=== PATIENT | female | born 1990 | race Caucasian/White ===

== ENCOUNTER → 2016-04-25 | Outpatient (CLI) | payer MEDICAID, OTHER ==
[~2016-04-25] MED LIST: CEPH-507 PO
--- OUTSIDE RECORDS SUMMARY | 2016-04-25 13:25 | XMS REPORT | Continuity of Care Document ---
Author Author [facility] Organization [facility] Address Unknown Phone Unavailable Care Team Providers Care Administrative Office Manager Name Role Phone NO, LOCAL PHYSICIAN PCP Unavailable Insurance Providers Payer Name Policy Number Subscriber Name Relationship Unknown [place] 19 Self / Same As Patient Advance Directives Directive Response Recorded Date/Time Advance Directives No 08/24/15 10:51pm Resuscitation Status Full Code 08/24/15 10:51pm Chief Complaint and Reason for Visit Chief Complaint -Female Reason for Visit Urinary tract infection Vaginal discharge Cervicitis Problems Active Problems Medical Problem Onset Date Status Cervicitis Unknown Acute Urinary tract infection Unknown Acute Vaginal discharge Unknown Acute Medications Current Home Medications Medication Dose Units Route Directions Days/Qty Instructions Start Date Cephalexin 500 Mg 500 Mg Oral Four Times Daily 28 08/25/15 Social History Social History Problem Response Recorded Date/Time Alcohol Use Denies Use 08/24/2015 10:51pm Recreational Drug Use No 08/24/2015 10:51pm Recent Foreign Travel No 08/24/2015 10:51pm Recent Infectious Disease Exposure No 08/24/2015 10:51pm Hospitalization with Isolation Denies 08/24/2015 10:51pm Smoking Status Unknown if Ever Smoked 08/24/2015 10:51pm Query Response Start Date Stop Date Smoking Status Unknown if Ever Smoked Hospital Discharge Instructions No hospital discharge instructions. Plan of Care Discharge Date 08/25/15 12:28am Disposition 01 HOME, SELF-CARE Condition at Discharge Improved Instructions/Education Provided Cervicitis (ED) Urinary Tract Infection in Women (ED) Prescriptions See Medication Section Referrals NO,LOCAL PHYSICIAN - Primary Care Physician Additional Instructions/Education Drink plenty of clear liquids. Complete the entire course of your antibiotics as prescribed. 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 Nothing vaginally including intercourse or tampons until cleared by your doctor. Return to emergency room if symptoms worsen. All discharge instructions reviewed with patient and/or family. Voiced understanding. Functional Status No functional status results. Allergies, Adverse Reactions, Alerts Allergen Type Severity Reaction Status Last Updated Codeine Allergy Unknown Active 08/24/15 hydrocodone ([id number]) Allergy Unknown Active 08/24/15 Tramadol Allergy Unknown Active 08/24/15 Immunizations No immunization records. Vital Signs Acute Vital Signs Vital Response Date/Time Temperature (Fahrenheit) 98.8 degrees F (97.6 - 99.5) 08/25/2015 12:26am Temperature (Calculated Celsius) 37.98685 degrees C (36.4 - 37.5) 08/25/2015 12:26am Pulse Rate (adult) 56 bpm (60 - 90) 08/25/2015 12:26am Respiratory Rate 18 bpm (12 - 24) 08/25/2015 12:26am O2 Sat by Pulse Oximetry 97 % (88 - 100) 08/25/2015 12:26am Blood Pressure 112/67 mm Hg 08/25/2015 12:26am Blood Pressure Mean 97 mm Hg 08/24/2015 10:51pm Pain Numeric Pain Scale 0-No Pain 08/25/2015 12:26am Height (Feet) 5 feet 08/24/2015 10:51pm Height (Inches) 5 inches 08/24/2015 10:51pm Height (Calculated Centimeters) 165.975896 cm 08/24/2015 10:51pm Weight (Pounds) 171 pounds 08/24/2015 10:51pm Weight (Calculated Kilograms) 77.520267 kilograms 08/24/2015 10:51pm Height 5 ft 5 in Weight 171 lb Body Mass Index 28.5 kg/m^2 Results Laboratory Results Test Name Result Units Flags Reference Collection Date/Time Result Date/ Time Comments Urine Color YELLOW 08/24/2015 11:12pm 08/24/2015 11:30pm Urine Clarity CLEAR 08/24/2015 11:12pm 08/24/2015 11:30pm Urine pH 6 5-9 08/24/2015 11:12pm 08/24/2015 11:30pm Urine Specific [place] 1.025 * 1.016-1.022 08/24/2015 11:12pm 2015 11:30pm Urine Protein 1+ * NEGATIVE 08/24/2015 11:12pm 08/24/2015 11:30pm Urine Glucose (UA) NEGATIVE NEGATIVE 08/24/2015 11:12p08/24/2015 11 :30pm Urine RBC (Auto) NEGATIVE NEGATIVE 08/24/2015 11:12pm 08/24/2015 11: 30pm Urine Ketones NEGATIVE NEGATIVE 08/24/2015 11:12pm 08/24/2015 11: 30pm Urine Nitrite NEGATIVE NEGATIVE 08/24/2015 11:12p08/24/2015 11: 30pm Urine Bilirubin NEGATIVE NEGATIVE 08/24/2015 11:12pm 08/24/2015 11: 30pm Urine Urobilinogen 1 MG/DL NORMAL 08/24/2015 11:12pm 08/24/2015 11: 30pm Urine Leukocyte Esterase 3+ * NEGATIVE 08/24/2015 11:12pm 08/24/2015 11 :30pm Urine RBC NONE /HPF 08/24/2015 11:12pm 08/24/2015 11:30pm Urine WBC 10-25 /HPF * 08/24/2015 11:12pm 08/24/2015 11:30pm Urine Bacteria MODERATE /HPF * 08/24/2015 11:12pm 08/24/2015 11:30pm Urine Squamous Epithelial Cells 10-25 /HPF * 08/24/2015 11:12pm 2015 11:30pm Urine Crystals NONE /LPF 08/24/2015 11:12pm 08/24/2015 11:30pm Urine Casts NONE /LPF 08/24/2015 11:12pm 08/24/2015 11:30pm Urine Mucus MODERATE /LPF * 08/24/2015 11:12pm 08/24/2015 11:30pm Urine Culture Indicated YES 08/24/2015 11:12pm 08/24/2015 11:30pm Procedures No known history of procedures. Encounters Encounter Location Arrival/Admit Date Discharge/Depart Date Attending Provider Departed Emergency Room [facility] 08/24/15 10:46pm 08/04 12:28am CAMMIE WALLACE MD Recent Diagnosis
--- NOTE | 2016-04-25 15:44 | Diagnostic Imaging Report ---
EXAMINATION: OB ultrasound. INDICATION: Positive test. COMPARISON: There are no prior studies available for comparison. FINDINGS: There is a single live fetus in transverse presentation. heart motion was noted, and a rate of 142 BPM was recorded. There were no obvious abnormalities identified. However, if a more sensitive evaluation of the anatomy is desired, then a short-term (2-4 week) followup ultrasound exam should be obtained. The growth parameters are fairly uniform. The growth parameters are as follows: BPD: 3.78, 17 Weeks 4 days. Head circumference: 14.16, 17 Weeks 4 days. Abdominal circumference: 11.88, 17 weeks 5 days. Femur length: 2.49, 17 weeks 4 days. The estimated weight is 200 g, +/-29 g. The AUA percentile is 35%. The placenta is anterior and low lying. There is no previa identified. The amniotic fluid volume is within normal limits. The cervix was visualized and measures 3.6 cm in length. IMPRESSION: 1. There is a single live fetus of approximately 17 weeks 5 days gestation, +/-1 week. The EDC is September 28, 2016. 2. There were no obvious abnormalities identified. Recommendations as above. 3. The growth parameters are fairly uniform. 4. The placenta is anterior and low lying, but there is no previa. Dictated by: Dictated on workstation # [id number]
== END ==
LOC: RAD 13:22
PROVIDERS: ATTEND Nurse Practitioner Family
DX: Z36 Encounter for antenatal screening of mother (principal); Z3A.17 17 weeks gestation of pregnancy
CPT/HCPCS: 76805

== ENCOUNTER 2016-09-15 12:02 | Outpatient (CLI) | payer MEDICAID ==
[~2016-09-15] VITALS: Ht 167.6 cm; Wt 71.2 kg
[2016-09-15 12:20] VITALS: BP 125/79
[2016-09-15 12:50] LABS: BILIRUBIN,URINE NEGATIVE (NEGATIVE); KETONES,URINE NEGATIVE (NEGATIVE); LEUKOCYTE ESTERASE ,URINE 3+ (NEGATIVE); NITRITE,URINE NEGATIVE (NEGATIVE); PH,URINE 8 (5-9); PROTEIN,URINE 1+ (NEGATIVE); UROBILINOGEN,URINE NORMAL (NORMAL)
[2016-09-15 13:05] LABS: SQUAMOUS EPITHELIAL CELL,UR RARE /HPF
[2016-09-15] MEDS ORDERED: AMOX500C2 PO (13:16)
[2016-09-15] MEDS ORDERED: PREN-37 PO (13:16)
[2016-09-15 13:21] VITALS: BP 125/79
--- NOTE | 2016-09-15 14:02 | Diagnostic Imaging Report ---
INDICATION: Decreased movement. FINDINGS: The placenta is anterior with no evidence of abruption or previa. Placenta is estimated grade 2. There are noted multiple venous lakes. heartbeat of 140 beats per minute. The amniotic fluid index is 7 cm. Fetus is currently vertex. There is noted good breathing and movement. IMPRESSION: Normal biophysical profile scoring 8 out of potential 8 points. Dictated by: Dictated on workstation # [id number]
--- NOTE | 2016-09-18 11:48 | Physician Query-Final Dx ---
ROGER MORENO 09/18/16 1148: Clinic Account Progress/Dx Physician Query: Please give diagnosis Date of Service Sep 15, 2016 at 12:02 TORITO MUÑOZ MD 09/20/16 1027: Clinic Account Progress/Dx DIAGNOSIS: Diagnosis 38 weeks gestation TIUP Decreased movement with normal BPP ROGER MORENO Sep 18, 2016 11:48 TORITO MUÑOZ MD Sep 20, 2016 10:27
== END 2016-09-15 13:30 | disposition home or self-care (01) ==
LOC: WSo 12:02 → LDRP 12:03 → WSo 13:30
PROVIDERS: ATTEND Family Medicine
DX: O36.8130 Decreased fetal movements, third trimester, not applicable or unspecified (principal); Z3A.38 38 weeks gestation of pregnancy
CPT/HCPCS: 76819; 81000; 87088; 99213

== ENCOUNTER 2016-10-10 19:18 | Emergency (ER) | payer MEDICAID ==
[~2016-10-10] VITALS: Ht 162.6 cm; Wt 68.0 kg
[~2016-10-10 19:18] MED LIST changes: +AMOX500C2 PO; +PREN-37 PO
--- OUTSIDE RECORDS SUMMARY | 2016-10-10 19:24 | XMS REPORT | Continuity of Care Document ---
Author Author [facility] Address Unknown Phone Unavailable Allergies Medications Problems Date Dx Coded Attending Type Code Diagnosis Diagnosed By 04/14/2010 V72.31 LOOP SEWER EXAM, ROUTINE 04/14/2010 NIKKI HART APRN V72.31 LOOP SEWER EXAM, ROUTINE 04/14/2010 MARK CALLE DO V72.31 LOOP SEWER EXAM, ROUTINE 10/12/2010 V25.09 CONTRACEPTIVE COUNSELING 10/12/2010 V25.40 CONTRACEPTIVE SURVEILLANCE UNSPECIFIED 10/12/2010 V65.45 STD COUNSELING 10/12/2010 V74.5 STD SCREEN 10/12/2010 NIKKI HART APRN V25.09 CONTRACEPTIVE COUNSELING 10/12/2010 NIKKI HART APRN V25.40 CONTRACEPTIVE SURVEILLANCE UNSPECIFIED 10/12/2010 NIKKI HART APRN V65.45 STD COUNSELING 10/12/2010 NIKKI HART APRN V74.5 STD SCREEN 10/12/2010 MARK CALLE DO K V25.09 CONTRACEPTIVE COUNSELING 10/12/2010 VANESSA CALLE DOA K V25.40 CONTRACEPTIVE SURVEILLANCE UNSPECIFIED 10/12/2010 VANESSA CALLE DOA K V65.45 STD COUNSELING 10/12/2010 VANESSA CALLE DOA K V74.5 STD SCREEN 11/13/2013 NIKKI HART APRN V73.81 HPV SCREENING 11/13/2013 NIKKI HART APRN V73.98 SCREENING EXAMINATION FOR UNSPECIFIED CHLAMYDIAL DISEASE 11/13/2013 NIKKI HART APRN V76.2 CERVICAL CANCER SCREENING (PAP SMEAR) 11/13/2013 CALLE VANESSA CARTERA K V73.81 HPV SCREENING 11/13/2013 VANESSA CALLE DOA K V73.98 SCREENING EXAMINATION FOR UNSPECIFIED CHLAMYDIAL DISEASE 11/13/2013 VANESSA CALLE DOA K V76.2 CERVICAL CANCER SCREENING (PAP SMEAR) 12/02/2013 MARK CALLE DO V25.9 CONTRACEPTION MANAGEMENT Procedures Code Description [place] [address] TEST, URINE (IN-HOUSE) 11/13/2013 43028 GC/CHLAM PROBE (STATE) 11/13/2013 01067 PAP SMEAR 2013 Q0091 PAP SMEAR OBTAIN SMEAR 11/13/2013 61073 THERAPUTIC INJ SQ/IM 12/02/2013 J1050 DEPO PROVERA 46102 TEST, URINE (IN-HOUSE) 12/02/2013 Results Encounters ACCT No. Visit Date/Time Discharge Status Pt. Type Provider Facility Loc./Unit Complaint [id number] 12/02/2013 12:27:00 12/02/2013 23: 59:59 CLS Outpatient MARK CALLE DO [id number] 11/13/2013 08:22:00 11/13/2013 23: 59:59 CLS Outpatient NIKKI HART APRN [id number] 10/12/2010 10:32:00 Document Registration
--- NOTE | 2016-10-10 20:23 | ED Integumentary General ---
General Chief Complaint: Skin/Wound Problems Stated Complaint: POSS SPIDER BITE ON RT ARM Nursing Triage Note: Pt amb to ED 10 reporting a presumed spider bite at 0930 this a.m. Reports area on lower lateral FA is burning with a small area of swelling/redness reported as "hot". Source: patient Exam Limitations: no limitations History of Present Illness Time seen by provider: 20:22 Initial Comments 26-year-old female patient presents to the emergency department with complaints of an insect bite to the right forearm beginning at 0930 today. Patient states she was outside last night and there were "a lot of mosquitoes." Patient reports swelling, redness, itching, and the area "feeling hot." Denies fever or drainage. Timing/Duration: this morning, getting worse Location: extremities (rt forearm) Possible Cause: insect bite ((possible spider bite or insect bite)) Modifying Factors: worse with scratching Allergies and Home Medications Allergies Coded Allergies: codeine (Unverified Allergy, Unknown, 08/24/15) tramadol (Unverified Allergy, Unknown, 08/24/15) sulfamethoxazole (Verified Adverse Reaction, Unknown, 10/10/16) trimethoprim (Verified Adverse Reaction, Unknown, 10/10/16) Home Medications Amoxicillin 500 Mg Capsule, 500 MG PO BID for 7 Days Prescribed by: ASHELY COATS on 09/15/16 1316 Vit/Iron Fumarate/FA 1 Each Tablet, 1 EACH PO DAILY, (Reported) Constitutional: No chills, No fever, No malaise EENTM: no symptoms reported Respiratory: no symptoms reported Cardiovascular: no symptoms reported Gastrointestinal: no symptoms reported Musculoskeletal: see HPI Skin: see HPI Psychiatric/Neurological: No Symptoms Reported All Other Systems Reviewed Negative Unless Noted: Yes (Negative excepted noted.) Past Amvkgwy-Etfkto-Masaox Hx Patient Social History Alcohol Use: Occasionally Uses Recreational Drug Use: No Smoking Status: Current Everyday Smoker Type Used: Cigarettes Recent Foreign Travel: No Contact w/Someone Who Travel: No Recent Infectious Disease Expo: No Recent Hopitalizations: No Seasonal Allergies Seasonal Allergies: No Surgeries History of Surgeries: No Respiratory History of Respiratory Disorde: No Cardiovascular History of Cardiac Disorders: No Neurological History of Neurological Disord: No Reproductive System : No (had baby 09/28/16) Hx : 2 Hx Para: 1 Hx Total # of Abortions (Spona: 1 Hx Reproductive Disorders: No Genitourinary History of Genitourinary Disor: No Gastrointestinal History of Gastrointestinal Di: No Musculoskeletal History of Musculoskeletal Dis: No Endocrine History of Endocrine Disorders: No HEENT History of HEENT Disorders: No Cancer History of Cancer: No Psychosocial History of Psychiatric Problem: No Integumentary History of Skin or Integumenta: No Blood Transfusions History of Blood Disorders: No Reviewed Nursing Assessment Reviewed/Agree w Nursing PMH: Yes Family Medical History Significant Family History: Cancer, Diabetes, Hypertension Physical Exam Vital Signs Vital Sign - Last 12Hours 10/10/16 19:24 Temp 98.1 Pulse 90 Resp 16 B/P (MAP) 112/83 Pulse Ox 97 O2 Delivery Room Air Capillary Refill : Less Than 3 Seconds General Appearance: WD/WN, no apparent distress Cardiovascular: normal peripheral pulses, regular rate, rhythm, no edema, no murmur Respiratory: lungs clear, normal breath sounds, no respiratory distress Extremities: normal capillary refill, other (3x4 cm area of ligh pink blush with a central puncture site noted on the posterior rt forearm. mild warmth noted. no drainage. nontender at the time of exam) Neurologic/Psychiatric: alert, normal mood/affect, oriented x 3 Skin: normal color, warm/dry, other (3x4 cm area of ligh pink blush with a central puncture site noted on the posterior rt forearm. mild warmth noted. no drainage. nontender at the time of exam) Skin Problem Location: upper extremities (rt forearm) Skin Problem Character: other (3x4 cm area of ligh pink blush with a central puncture site noted on the posterior rt forearm. mild warmth noted. no drainage. nontender at the time of exam) Progress/Results/Core Measures Results/Orders My Orders Orders - CATIA ESTEVEZ Dexamethasone Pf Injection (Decadron Pf (10/10/16 20:31) Diphenhydramine Tablet (Benadryl Tablet) (10/10/16 20:45) Famotidine Tablet (Pepcid Tablet) (10/10/16 20:45) Vital Signs/I&O Vital Sign - Last 12Hours 10/10/16 19:24 Temp 98.1 Pulse 90 Resp 16 B/P (MAP) 112/83 Pulse Ox 97 O2 Delivery Room Air Blood Pressure Mean: 93 Departure Impression Impression: Primary Impression: Urticaria Additional Impression: Insect bite Qualified Codes: W57.XXXA - Bitten or stung by nonvenomous insect and other nonvenomous arthropods, initial encounter Disposition: 01 HOME, SELF-CARE Condition: Improved Departure-Patient Inst. Decision time for Depature: 20:47 Referrals: NO,LOCAL PHYSICIAN (PCP/Family) Primary Care Physician Patient Instructions: Insect Bites and Stings (DC) Add. Discharge Instructions: All discharge instructions reviewed with patient and/or family. Voiced understanding. Medications as instructed. Tylenol extra strength [id number] as directed for pain. Ibuprofen 800 mg by mouth every 8 hours as needed for pain. Benadryl [id number] 25-50 mg by mouth every 4-6 hours as needed for itching and rash. Pepcid [id number]-[id number] 20 mg one by mouth twice daily as needed for allergic reactions. Shower with antibacterial soap. Ice packs or heating pads as needed for pain and swelling. Follow-up with your family practitioner for recheck if needed. Return to the emergency department for worsened symptoms or any other concerns. 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
[2016-10-10] MEDS ORDERED: DEXAMETHASONE PF 10 MG/ML (DECADRON) VIAL IM STA (20:31)
[2016-10-10] MEDS ORDERED: diphenhydrAMINE 25 MG TAB (BENADRYL) PO ONE (20:45)
[2016-10-10] MEDS ORDERED: FAMOTIDINE 20 MG (PEPCID) TABLET PO ONE (20:45)
[2016-10-10] MEDS ORDERED: PRD20T PO (20:47)
[2016-10-10] MEDS ORDERED: DEXAMETHASONE 10 MG/ML (DECADRON) 1 ML VIAL ONE (20:58)
[2016-10-10 21:40] VITALS: BP 107/72
== END 2016-10-10 21:40 | disposition home or self-care (01) ==
LOC: EDUNIT# 19:18 → ER 19:20
DX: S50.861A Insect bite (nonvenomous) of right forearm, initial encounter (principal); L50.9 Urticaria, unspecified; F17.210 Nicotine dependence, cigarettes, uncomplicated; Z80.9 Family history of malignant neoplasm, unspecified; W57.XXXA Bitten or stung by nonvenomous insect and other nonvenomous arthropods, initial encounter
CPT/HCPCS: 96372; 99284

== ENCOUNTER 2017-02-22 17:41 | Emergency (ER) | payer MEDICAID ==
[~2017-02-22] VITALS: Ht 165.1 cm; Wt 62.6 kg
[~2017-02-22 17:41] MED LIST changes: +PRD20T PO
--- NOTE | 2017-02-22 17:51 | ED GI ---
General Chief Complaint: Abdominal/GI Problems Stated Complaint: PASSED OUT AT WORK Source of Information: Patient, EMS Exam Limitations: No Limitations History of Present Illness Time Seen By Provider: 17:50 Initial Comments To ER per EMS from work at [employer] in [facility] with reports of nausea vomiting and syncope. Patient had been feeling ill today and vomited twice at home. She then went into work and asked someone to cover for her when she went to the bathroom. She went to the bathroom again because she was feeling very nauseous. She states "I blacked out". She denies hitting her head but she does report some dizziness. Denies chest pain or palpitations. She has had some suprapubic and low back pain for the past few days. No dysuria. Timing/Duration: 4-6 Hours Severity/Quality: Moderate Radiation: Back Activities at Onset: None Allergies and Home Medications Allergies Coded Allergies: codeine (Unverified Allergy, Unknown, 08/24/15) tramadol (Unverified Allergy, Unknown, 08/24/15) sulfamethoxazole (Verified Adverse Reaction, Unknown, 10/10/16) trimethoprim (Verified Adverse Reaction, Unknown, 10/10/16) Home Medications Amoxicillin 500 Mg Capsule, 500 MG PO BID for 7 Days Prescribed by: ASHELY COATS on 09/15/16 1316 Medroxyprogesterone Acetate 150 Mg/1 Ml Syringe, 150 MG IM, (Reported) Prednisone 20 Mg Tab, 40 MG PO DAILY, #10 Ref 0 Prescribed by: CATIA ESTEVEZ on 10/10/16 2047 Vit/Iron Fumarate/FA 1 Each Tablet, 1 EACH PO DAILY, (Reported) Review of Systems Constitutional: see HPI EENTM: No Symptoms Reported Respiratory: No Symptoms Reported Cardiovascular: See HPI, Denies Chest Pain, Denies Edema, Denies Irregular Heart Rate, Denies Lightheadedness, Denies Palpitations, Syncope Gastrointestinal: See HPI, Abdominal Pain, Nausea, Vomiting Genitourinary: No Symptoms Reported Musculoskeletal: no symptoms reported Skin: no symptoms reported Psychiatric/Neurological: No Symptoms Reported Endocrine: No Symptoms Reported Hematologic/Lymphatic: No Symptoms Reported Past Kcgydou-Mwegoa-Cxeuyr Hx Patient Social History Type Used: Cigarettes Recent Foreign Travel: No Contact w/Someone Who Travel: No Recent Hopitalizations: No Seasonal Allergies Seasonal Allergies: No Surgeries History of Surgeries: No Respiratory History of Respiratory Disorde: No Cardiovascular History of Cardiac Disorders: No Neurological History of Neurological Disord: No Reproductive System Hx Reproductive Disorders: No Genitourinary History of Genitourinary Disor: No Gastrointestinal History of Gastrointestinal Di: No Musculoskeletal History of Musculoskeletal Dis: No Endocrine History of Endocrine Disorders: No HEENT History of HEENT Disorders: No Cancer History of Cancer: No Psychosocial History of Psychiatric Problem: No Integumentary History of Skin or Integumenta: No Blood Transfusions History of Blood Disorders: No Family Medical History Significant Family History: Cancer, Diabetes, Hypertension Physical Exam Vital Signs VS - Last 72 Hours, by Label 02/22/17 17:49 Temp 98.3 Pulse 92 Resp 20 B/P (MAP) 112/74 (87) Pulse Ox 97 O2 Delivery Room Air Capillary Refill : General Appearance: WD/WN, no apparent distress HEENT: PERRL/EOMI, normal ENT inspection Neck: non-tender, full range of motion Respiratory: normal breath sounds, no respiratory distress, no accessory muscle use Cardiovascular: regular rate, rhythm, no murmur Gastrointestinal: normal bowel sounds, non tender, soft Extremities: normal range of motion, non-tender Neurologic/Psychiatric: alert, normal mood/affect, oriented x 3 Skin: normal color, warm/dry Progress/Results/Core Measures Results/Orders Lab Results Laboratory Tests Test 02/22/17 18:04 Range/Units White Blood Count 11.5 H 4.3-11.0 10^3/uL Red Blood Count 4.58 4.35-5.85 10^6/uL Hemoglobin 13.6 11.5-16.0 G/DL Hematocrit 36 35-52 % Mean Corpuscular Volume 78 L 80-99 FL Mean Corpuscular Hemoglobin 30 25-34 PG Mean Corpuscular Hemoglobin Concent 38 H 32-36 G/DL Red Cell Distribution Width 13.5 10.0-14.5 % Platelet Count 244 130-400 10^3/uL Mean Platelet Volume 8.6 7.4-10.4 FL Neutrophils (%) (Auto) 91 H 42-75 % Lymphocytes (%) (Auto) 4 L 12-44 % Monocytes (%) (Auto) 4 0-12 % Eosinophils (%) (Auto) 1 0-10 % Basophils (%) (Auto) 0 0-10 % Neutrophils # (Auto) 10.5 H 1.8-7.8 X 10^3 Lymphocytes # (Auto) 0.5 L 1.0-4.0 X 10^3 Monocytes # (Auto) 0.5 0.0-1.0 X 10^3 Eosinophils # (Auto) 0.1 0.0-0.3 10^3/uL Basophils # (Auto) 0.0 0.0-0.1 10^3/uL Neutrophils % (Manual) 88 % Lymphocytes % (Manual) 5 % Monocytes % (Manual) 3 % Eosinophils % (Manual) 2 % Basophils % (Manual) 0 % Band Neutrophils 2 % Clumped Platelets OCCASIONAL Blood Morphology Comment NORMAL Urine Color ANN H Urine Clarity SLIGHTLY CLOUDY Urine pH 6 5-9 Urine Specific [place] 1.015 L 1.016-1.022 Urine Protein 2+ H NEGATIVE Urine Glucose (UA) NEGATIVE NEGATIVE Urine Ketones 4+ H NEGATIVE Urine Nitrite NEGATIVE NEGATIVE Urine Bilirubin 1+ H NEGATIVE Urine Urobilinogen 1 NORMAL MG/DL Urine Leukocyte Esterase 1+ H NEGATIVE Urine RBC (Auto) NEGATIVE NEGATIVE Urine RBC NONE /HPF Urine WBC 2-5 /HPF Urine Squamous Epithelial Cells 10-25 H /HPF Urine Crystals NONE /LPF Urine Bacteria MODERATE H /HPF Urine Casts NONE /LPF Urine Mucus LARGE H /LPF Urine Culture Indicated NO Sodium Level 140 135-145 MMOL/L Potassium Level 3.9 3.6-5.0 MMOL/L Chloride Level 107 98-107 MMOL/L Carbon Dioxide Level 22 21-32 MMOL/L Anion Gap 11 5-14 MMOL/L Blood Urea Nitrogen 18 7-18 MG/DL Creatinine 0.73 0.60-1.30 MG/DL Estimat Glomerular Filtration Rate > 60 BUN/Creatinine Ratio 25 Glucose Level 87 70-105 MG/DL Calcium Level 8.9 8.5-10.1 MG/DL Total Bilirubin 0.5 0.1-1.0 MG/DL Aspartate Amino Transf (AST/SGOT) 16 5-34 U/L Alanine Aminotransferase (ALT/SGPT) 10 0-55 U/L Alkaline Phosphatase 50 40-136 U/L Total Protein 7.6 6.4-8.2 GM/DL Albumin 4.2 3.2-4.5 GM/DL Urine Opiates Screen NEGATIVE NEGATIVE Urine Oxycodone Screen NEGATIVE NEGATIVE Urine Methadone Screen NEGATIVE NEGATIVE Urine Propoxyphene Screen NEGATIVE NEGATIVE Urine Barbiturates Screen NEGATIVE NEGATIVE Ur Tricyclic Antidepressants Screen NEGATIVE NEGATIVE Urine Phencyclidine Screen NEGATIVE NEGATIVE Urine Amphetamines Screen NEGATIVE NEGATIVE Urine Methamphetamines Screen POSITIVE H NEGATIVE Urine Benzodiazepines Screen NEGATIVE NEGATIVE Urine Cocaine Screen NEGATIVE NEGATIVE Urine Cannabinoids Screen NEGATIVE NEGATIVE My Orders Orders - DARWIN LARSON APRN Cbc With Automated Diff (02/22/17 17:48) Comprehensive Metabolic Panel (02/22/17 17:48) Ua Culture If Indicated (02/22/17 17:48) Urine Bedside (02/22/17 17:48) Drug Screen Stat (Urine) (02/22/17 17:48) Ekg Tracing (02/22/17 17:48) Saline Lock/Iv-Start (02/22/17 17:48) Ct Head Wo (02/22/17 17:48) Ondansetron Injection (Zofran Injectio (02/22/17 18:00) Manual Differential (02/22/17 18:04) Ct Abdomen/Pelvis W (02/22/17 18:55) Medications Given in ED Current Medications Medications Dose Ordered Sig/Chacorta Route Start Time Stop Time Status Last Admin Dose Admin Ondansetron HCl 8 mg ONCE ONCE IVP 02/22/17 18:00 02/22/17 18:01 DC 02/22/17 18:27 8 MG Vital Signs/I&O Vital Sign - Last 12Hours 02/22/17 17:49 Temp 98.3 Pulse 92 Resp 20 B/P (MAP) 112/74 (87) Pulse Ox 97 O2 Delivery Room Air Diagnostic Imaging Diagonstic Imaging: CT Comments NAME: MATILDA [facility]BY [facility] REC#: [id number] PT STATUS: REG ER : 1990 PHYSICIAN: DARWIN LARSON APRN ADMIT DATE: 02/22/17/ER Draft Date of Exam:02/22/17 CT HEAD WO PROCEDURE: CT head without contrast. TECHNIQUE: Multiple contiguous axial images were obtained through the brain without the use of intravenous contrast. INDICATION: Loss of consciousness. COMPARISON: None. FINDINGS: No intracranial hemorrhage. No Intracranial mass, mass effect, midline shift, herniation, hydrocephalus, or extra-axial fluid collection. No CT evidence of an acute ischemic infarction. The calvarium and extracalvarial soft tissues are unremarkable. The paranasal sinuses are clear. IMPRESSION: No acute intracranial abnormality. Dictated on workstation # [id number] Dict: 02/22/17 1829 Trans: 02/22/17 1835 [facility] [id number] Interpreted by: FRANCO ESPINOZA MD Electronically signed by: Departure Communication (Admissions) Progress Notes 183- Patient states that she has not used methamphetamines since August. 190-patient is feeling better at this time without nausea vomiting or abdominal pain. With that in mind I will cancel the abdominal CT. Impression Impression: Primary Impression: Syncopal episodes Additional Impression: Nausea & vomiting Disposition: HOME, SELF-CARE Condition: Stable Departure-Patient Inst. Decision time for Depature: 19:05 Referrals: NO,LOCAL PHYSICIAN (PCP/Family) Primary Care Physician Add. Discharge Instructions: clear liquids only for the next 12 hours return to ER for any worsening. All discharge instructions reviewed with patient and/or family. Voiced understanding. Scripts Ondansetron (Zofran Odt) 8 Mg Tab.rapdis 8 MG PO Q6H Y for NAUSEA/VOMITING-1ST LINE, #10 TAB Prov: DARWIN LARSON RIVETER 02/22/17 DARWIN LARSON RIVETER Feb 22, 2017 17:51
[2017-02-22] MEDS ORDERED: ONDANSETRON 4 MG/2 ML (SDV) Z0FRAN IVP ONE (18:00)
[2017-02-22 18:20] LABS: BASOPHILS % (AUTO) 0 % (0-10); EOSINOPHILS # (AUTO) 0.1 10^3/uL (0.0-0.3); EOSINOPHILS % (AUTO) 1 % (0-10); HEMATOCRIT 36 % (35-52); HEMOGLOBIN 13.6 G/DL (11.5-16.0); LYMPHOCYTES # (AUTO) 0.5 X 10^3 (1.0-4.0); LYMPHOCYTES % (AUTO) 4 % (12-44); MEAN CORPUSCULAR HEMOGLOBIN 30 PG (25-34); MEAN CORPUSCULAR HGB CONC 38 G/DL (32-36); MEAN CORPUSCULAR VOLUME 78 FL (80-99); MEAN PLATELET VOLUME 8.6 FL (7.4-10.4); MONOCYTES # (AUTO) 0.5 X 10^3 (0.0-1.0); MONOCYTES % (AUTO) 4 % (0-12); NEUTROPHILS # (AUTO) 10.5 X 10^3 (1.8-7.8); NEUTROPHILS % (AUTO) 91 % (42-75); PLATELET COUNT 244 10^3/uL (130-400); RED BLOOD COUNT 4.58 10^6/uL (4.35-5.85); RED CELL DISTRIBUTION WIDTH 13.5 % (10.0-14.5); WHITE BLOOD COUNT 11.5 10^3/uL (4.3-11.0)
[2017-02-22 18:28] LABS: AMPHETAMINE SCREEN, URINE NEGATIVE (NEGATIVE); BARBITURATE SCREEN URINE NEGATIVE (NEGATIVE); BENZODIAZEPINES SCREEN URINE NEGATIVE (NEGATIVE); CANNABINOID SCREEN, URINE NEGATIVE (NEGATIVE); COCAINE SCREEN URINE NEGATIVE (NEGATIVE); METHADONE STAT NEGATIVE (NEGATIVE); METHAMPHETAMINE SCREEN URINE S POSITIVE (NEGATIVE); OPIATE SCREEN URINE NEGATIVE (NEGATIVE); OXYCODONE STAT NEGATIVE (NEGATIVE); PROPOXYPHENE STAT NEGATIVE (NEGATIVE); TRICYCLIC ANTIDEPRESSANTS SCRE NEGATIVE (NEGATIVE)
--- NOTE | 2017-02-22 18:35 | Diagnostic Imaging Report ---
PROCEDURE: CT head without contrast. TECHNIQUE: Multiple contiguous axial images were obtained through the brain without the use of intravenous contrast. INDICATION: Loss of consciousness. COMPARISON: None. FINDINGS: No intracranial hemorrhage. No Intracranial mass, mass effect, midline shift, herniation, hydrocephalus, or extra-axial fluid collection. No CT evidence of an acute ischemic infarction. The calvarium and extracalvarial soft tissues are unremarkable. The paranasal sinuses are clear. IMPRESSION: No acute intracranial abnormality. Dictated by: Dictated on workstation # [id number]
[2017-02-22 18:37] LABS: ALANINE AMINOTRANSFERASE 10 U/L (0-55); ALBUMIN 4.2 GM/DL (3.2-4.5); ALKALINE PHOSPHATASE 50 U/L (40-136); BILIRUBIN,TOTAL 0.5 MG/DL (0.1-1.0); BUN/CREATININE RATIO 25; CALCIUM 8.9 MG/DL (8.5-10.1); CARBON DIOXIDE 22 MMOL/L (21-32); CHLORIDE 107 MMOL/L (98-107); CREATININE SERUM 0.73 MG/DL (0.60-1.30); GFR ESTIMATED > 60; GLUCOSE 87 MG/DL (70-105); POTASSIUM 3.9 MMOL/L (3.6-5.0); SODIUM 140 MMOL/L (135-145); TOTAL PROTEIN 7.6 GM/DL (6.4-8.2)
[2017-02-22 18:39] LABS: BAND NEUTROPHILS 2 %; BASOPHILS % (MANUAL) 0 %; EOSINOPHILS % (MANUAL) 2 %; LYMPHOCYTES % (MANUAL) 5 %; MONOCYTES % (MANUAL) 3 %; NEUTROPHILS % (MANUAL) 88 %; PLATELET CLUMPS OCCASIONAL; RBC MORPH NORMAL
[2017-02-22 18:42] LABS: CLARITY,URINE SLIGHTLY CLOUDY; COLOR,URINE AMBER; GLUCOSE, URINE (UA) NEGATIVE (NEGATIVE); KETONES,URINE 4+ (NEGATIVE); LEUKOCYTE ESTERASE ,URINE 1+ (NEGATIVE); NITRITE,URINE NEGATIVE (NEGATIVE); PH,URINE 6 (5-9); PROTEIN,URINE 2+ (NEGATIVE); UROBILINOGEN,URINE 1 MG/DL (NORMAL)
[2017-02-22] MEDS ORDERED: MEDR150D8 IM (18:56)
[2017-02-22 19:01] LABS: BILIRUBIN,URINE 1+ (NEGATIVE)
[2017-02-22 19:03] LABS: BACTERIA,URINE MODERATE /HPF
[2017-02-22] MEDS ORDERED: ONDA8TAB9 PO (19:06)
[2017-02-22 19:26] VITALS: BP 90/55
--- OUTSIDE RECORDS SUMMARY | 2017-02-23 23:28 | XMS REPORT ---
Author Author ORTIZ WILKERSON [facility] [place] Address [address] [place] [address] Care Team Providers Care Steel Loader Name Role Phone ORTIZ WILKERSON Unavailable PROBLEMS Type Condition ICD9-CM Code [id number] Code Onset Dates Condition Status SNOMED Code Problem Normal first confirmed, currently in second trimester Z34.02 Active [id number] ALLERGIES No Information SOCIAL HISTORY Never Assessed PLAN OF CARE VITAL SIGNS MEDICATIONS Unknown Medications RESULTS Name Result Date Reference Range THYROID ANALYZER 2016-04-11 TSH 0.769 0.450-4.500 PROCEDURES Procedure Date Ordered Result Body Site ROUTINE VENIPUNCTURE 2016-04-11 N/A ASSAY THYROID STIM HORMONE Apr 11, 2016 IMMUNIZATIONS No Known Immunizations MEDICAL (GENERAL) HISTORY Type Description Date Hospitalization History [facility] , 12 hour stay. 03/2011
--- OUTSIDE RECORDS SUMMARY | 2017-02-23 23:28 | XMS REPORT ---
Author ORTIZ Gomes [facility] Address [address] [place] [address] Care Team Providers Care Military Source Operations Officer Name Role Phone ORTIZ WILKERSON Unavailable PROBLEMS Type Condition ICD9-CM Code [id number] Code Onset Dates Condition Status SNOMED Code Problem Normal first confirmed, currently in second trimester Z34.02 Active [id number] ALLERGIES No Information SOCIAL HISTORY Never Assessed PLAN OF CARE VITAL SIGNS MEDICATIONS Unknown Medications RESULTS No Results PROCEDURES No Known procedures IMMUNIZATIONS No Known Immunizations MEDICAL (GENERAL) HISTORY Type Description Date Hospitalization History [facility] , 12 hour stay. 03/2011
--- OUTSIDE RECORDS SUMMARY | 2017-02-23 23:28 | XMS REPORT ---
Author ORTIZ Gomes [facility] Address [address] [place] [address] Care Team Providers Care Pond Worker Name Role Phone ORTIZ WILKERSON Unavailable PROBLEMS Type Condition ICD9-CM Code [id number] Code Onset Dates Condition Status SNOMED Code Problem Normal first confirmed, currently in second trimester Z34.02 Active [id number] ALLERGIES No Information SOCIAL HISTORY Never Assessed PLAN OF CARE VITAL SIGNS MEDICATIONS Unknown Medications RESULTS No Results PROCEDURES No Known procedures IMMUNIZATIONS No Known Immunizations MEDICAL (GENERAL) HISTORY Type Description Date Hospitalization History [facility] , 12 hour stay. 03/2011
--- OUTSIDE RECORDS SUMMARY | 2017-02-23 23:28 | XMS REPORT ---
Author Author ORTIZ WILKERSON [facility] Address [address] [place] [address] Care Team Providers Care Fence Erector Name Role Phone ORTIZ WILKERSON Unavailable PROBLEMS Type Condition ICD9-CM Code [id number] Code Onset Dates Condition Status SNOMED Code Problem Normal first confirmed, currently in second trimester Z34.02 Active [id number] ALLERGIES Unknown Allergies SOCIAL HISTORY No smoking Hx information available PLAN OF CARE VITAL SIGNS MEDICATIONS Unknown Medications RESULTS Name Result Date Reference Range TEST, URINE (IN HOUSE) RESULTS Positive Lot # [id number] Control + Exp date 05/2017 PROCEDURES Procedure Date Ordered Related Diagnosis Body Site URINE TEST Feb 25, 2016 IMMUNIZATIONS No Known Immunizations
--- OUTSIDE RECORDS SUMMARY | 2017-02-23 23:28 | XMS REPORT ---
Author ORTIZ Gomes [facility] Address [address] [place] [address] Care Team Providers Care Design Maker Name Role Phone ORTIZ WILKERSON Unavailable PROBLEMS Type Condition ICD9-CM Code PGL70-DY Code Onset Dates Condition Status SNOMED Code Problem Normal first confirmed, currently in second trimester Z34.02 Active [id number] ALLERGIES No Information SOCIAL HISTORY Never Assessed PLAN OF CARE VITAL SIGNS MEDICATIONS Unknown Medications RESULTS No Results PROCEDURES No Known procedures IMMUNIZATIONS No Known Immunizations MEDICAL (GENERAL) HISTORY Type Description Date Hospitalization History [facility] , 12 hour stay. 03/2011
--- OUTSIDE RECORDS SUMMARY | 2017-02-23 23:28 | XMS REPORT ---
Author MARK Briscoe [facility] Address [address] [place] [address] Care Team Providers Care Allied Health Instructor Name Role Phone MARK CALLE Unavailable PROBLEMS Type Condition ICD9-CM Code [id number] Code Onset Dates Condition Status SNOMED Code Problem Normal first confirmed, currently in second trimester Z34.02 Active [id number] ALLERGIES Substance Reaction Event Type Date Status Codeine Sulfate dizziness Drug Allergy Apr, Active SOCIAL HISTORY Never Assessed PLAN OF CARE Activity Details Follow Up 4 Weeks w/ Dr. Melgar Reason:ob VITAL SIGNS Height 65 in 2016-04-24 Weight 150.8 lbs 2016-04-24 Temperature 97.8 degrees Fahrenheit 2016-04-24 Heart Rate 63 bpm 2016-04-24 Respiratory Rate 16 2016-04-24 BMI 25.094 kg/m2 2016-04-24 Blood pressure systolic 96 mmHg 2016-04-24 Blood pressure diastolic 58 mmHg 2016-04-24 MEDICATIONS Unknown Medications RESULTS Name Result Date Reference Range TETRA SCREEN 2016-04-25 Results Report Test Results: *Screen Negative* Gest. Age on Collection Date 17.1 Gestat. Age Based On Ultrasound Maternal Age At PATRICE 25.2 Race Weight 150 Insulin Dep Diabetes No Multiple Gestation No AFP Value 47.8 AFP MoM 1.26 hCG Value hCG MoM 0.61 uE3 Value 1.38 uE3 MoM 1.27 ROOPA Value 169.97 ROOPA MoM 0.98 OSBR Risk 1 IN 5411 DSR (Second Trimester) 1 [place] [address] DSR (By Age) 1 IN 1022 T18 Risk Not increased T18 (By Age) 1:3981 Interpretation Comments: PDF . PDF Report 2016-04-25 PDF Report1 [facility] PROCEDURES Procedure Date Ordered Result Body Site ROUTINE VENIPUNCTURE 2016-04-24 N/A ALPHA-FETOPROTEIN, SERUM April 24, 2016 ASSAY OF ESTRIOL April 24, 2016 INHIBIN A April 24, 2016 CHORIONIC GONADOTROPIN TEST April 24, 2016 IMMUNIZATIONS No Known Immunizations MEDICAL (GENERAL) HISTORY Type Description Date Hospitalization History [facility] , 12 hour stay. 03/2011
--- OUTSIDE RECORDS SUMMARY | 2017-02-23 23:29 | XMS REPORT | Continuity of Care Document ---
Author Author [facility] Address Unknown Phone Unavailable Allergies There is no data. Medications There is no data. Problems Date Dx Coded Attending Type Code Diagnosis Diagnosed By 04/14/2010 V72.31 PIPE FITTER SOFT COPPER EXAM, ROUTINE 04/14/2010 NIKKI HART APRN V72.31 PIPE FITTER SOFT COPPER EXAM, ROUTINE 04/14/2010 MARK CALLE DO K V72.31 PIPE FITTER SOFT COPPER EXAM, ROUTINE 10/12/2010 V25.09 CONTRACEPTIVE COUNSELING 10/12/2010 V25.40 CONTRACEPTIVE SURVEILLANCE UNSPECIFIED 10/12/2010 V65.45 STD COUNSELING 10/12/2010 V74.5 STD SCREEN 10/12/2010 NIKKI HART APRN V25.09 CONTRACEPTIVE COUNSELING 10/12/2010 NIKKI HART APRN L V25.40 CONTRACEPTIVE SURVEILLANCE UNSPECIFIED 10/12/2010 NIKKI HART APRN L V65.45 STD COUNSELING 10/12/2010 NIKKI HART APRN L V74.5 STD SCREEN 10/12/2010 CALLE VANESSA CARTERA K V25.09 CONTRACEPTIVE COUNSELING 10/12/2010 LUC CARTER MARK K V25.40 CONTRACEPTIVE SURVEILLANCE UNSPECIFIED 10/12/2010 LUC CARTER MARK K V65.45 STD COUNSELING 10/12/2010 LUC CARTER MARK K V74.5 STD SCREEN 11/13/2013 NIKKI HART APRN V73.81 HPV SCREENING 11/13/2013 EATNIKKI BAUTISTA APRN L V73.98 SCREENING EXAMINATION FOR UNSPECIFIED CHLAMYDIAL DISEASE 11/13/2013 EATNIKKI BAUTISTA APRN V76.2 CERVICAL CANCER SCREENING (PAP SMEAR) 11/13/2013 CALLE DO MARK K V73.81 HPV SCREENING 11/13/2013 CALLE DO MARK K V73.98 SCREENING EXAMINATION FOR UNSPECIFIED CHLAMYDIAL DISEASE 11/13/2013 CALLE DO MARK K V76.2 CERVICAL CANCER SCREENING (PAP SMEAR) 12/02/2013 MARK CALLE DO V25.9 CONTRACEPTION MANAGEMENT Procedures Code Description [place] [address] TEST, URINE (IN- HOUSE) 11/13/2013 56769 GC/CHLAM PROBE (STATE) 11/13/2013 57777 PAP SMEAR 11/13/2013 Q0091 PAP SMEAR OBTAIN SMEAR 11/13/2013 41075 THERAPUTIC INJ SQ/IM 12/02/2013 J1050 DEPO PROVERA 12/02/2013 97984 TEST, URINE (IN- HOUSE) 12/02/2013 Results There is no data. Encounters ACCT No. Visit Date/Time Discharge Status Pt. Type Provider Facility Loc./Unit Complaint [id number] 12/02/2013 12:27:00 12/02/2013 23:59:59 CLS Outpatient MARK CALLE DO [id number] 11/13/2013 08:22:00 11/13/2013 23:59:59 CLS Outpatient NIKKI HART APRN [id number] 10/12/2010 10:32:00 Document Registration
== END 2017-02-22 19:23 | disposition home or self-care (01) ==
LOC: EDUNIT# 17:41 → ER 17:42
DX: R55 Syncope and collapse (principal); R11.2 Nausea with vomiting, unspecified
CPT/HCPCS: 36415; 70450; 80053; 80306; 81000; 84703; 85007; 85027; 93005; 96374

== ENCOUNTER → 2017-08-24 | Outpatient (CLI) | payer MEDICAID ==
[~2017-08-24] MED LIST changes: +MEDR150D8 IM; +ONDA8TAB9 PO
--- NOTE | 2017-08-24 17:58 | Diagnostic Imaging Report ---
INDICATION: Lump in the left breast at the 2 o'clock location. EXAMINATION: Left breast ultrasound. FINDINGS: Sonographic interrogation of the area of lump at the 2 o'clock location of the left breast was performed. No sonographic abnormality is seen. No solid or cystic mass is detected. IMPRESSION: BI-RADS category 1. No sonographic abnormality is seen. Close clinical and self breast exam is recommended to confirm stability of the palpable abnormality. If this does not resolve, diagnostic mammography would be recommended. Dictated by: Dictated on workstation # [id number]
== END ==
LOC: RAD 10:46
PROVIDERS: ATTEND Nurse Practitioner Primary Care
DX: N63.21 Unspecified lump in the left breast, upper outer quadrant (principal)
CPT/HCPCS: 76642

== ENCOUNTER → 2017-08-31 | Outpatient (CLI) | payer MEDICAID ==
--- NOTE | 2017-08-31 13:19 | Diagnostic Imaging Report ---
PROCEDURE: US Non-OB pelvis comp/trans. TECHNIQUE: Multiple realtime grayscale images were obtained of the pelvis in various projections endovaginally. Transabdominal imaging was also performed. INDICATION: Dysfunctional uterine bleeding. FINDINGS: The uterus measures 6.1 x 4.5 x 3.5 cm. The endometrium is 2 mm in thickness. No myometrial mass is identified. The right ovary measures 4.0 x 1.7 x 2.3 cm, and the left ovary measures 4.0 x 2.2 x 2.0 cm. There are small follicles bilaterally. There is blood flow bilaterally. No adnexal mass or free fluid is seen. IMPRESSION: Unremarkable transabdominal and transvaginal pelvic ultrasound. Dictated by: Dictated on workstation # [id number]
== END ==
LOC: RAD 12:07
PROVIDERS: ATTEND Nurse Practitioner Primary Care
DX: N93.8 Other specified abnormal uterine and vaginal bleeding (principal)
CPT/HCPCS: 76830; 76856

== ENCOUNTER 2017-12-25 09:06 | Emergency (ER) | payer MEDICAID ==
[~2017-12-25] VITALS: Ht 165.1 cm; Wt 70.3 kg
--- OUTSIDE RECORDS SUMMARY | 2017-12-25 09:11 | XMS REPORT | Continuity of Care Document ---
Author Author [facility] Address Unknown Phone Unavailable Allergies There is no data. Medications There is no data. Problems Date Dx Coded Attending Type Code Diagnosis Diagnosed By 04/14/2010 V72.31 BEACH ATTENDANT EXAM, ROUTINE 04/14/2010 NIKKI HART APRN V72.31 BEACH ATTENDANT EXAM, ROUTINE 04/14/2010 MARK CALLE DO K V72.31 BEACH ATTENDANT EXAM, ROUTINE 10/12/2010 V25.09 CONTRACEPTIVE COUNSELING 10/12/2010 V25.40 CONTRACEPTIVE SURVEILLANCE UNSPECIFIED 10/12/2010 V65.45 STD COUNSELING 10/12/2010 V74.5 STD SCREEN 10/12/2010 NIKKI HART APRN V25.09 CONTRACEPTIVE COUNSELING 10/12/2010 NIKKI HART APRN L V25.40 CONTRACEPTIVE SURVEILLANCE UNSPECIFIED 10/12/2010 NIKKI HART APRN L V65.45 STD COUNSELING 10/12/2010 NIKKI HART APRN L V74.5 STD SCREEN 10/12/2010 CALLE VANESSA CARTERA K V25.09 CONTRACEPTIVE COUNSELING 10/12/2010 CALLE DO MARK K V25.40 CONTRACEPTIVE SURVEILLANCE UNSPECIFIED 10/12/2010 [...] Procedures Code Description [place] [address] TEST, URINE (IN- HOUSE) 11/13/2013 37880 GC/CHLAM PROBE (STATE) 11/13/2013 65843 PAP SMEAR 11/13/2013 Q0091 PAP SMEAR OBTAIN SMEAR 11/13/2013 62927 THERAPUTIC INJ SQ/IM 12/02/2013 J1050 DEPO PROVERA 12/02/2013 75535 TEST, URINE (IN- HOUSE) 12/02/2013 Results There is no data. Encounters ACCT No. Visit Date/Time Discharge Status Pt. Type Provider Facility Loc./Unit Complaint [id number] 12/02/2013 12:27:00 12/02/2013 23:59:59 CLS Outpatient MARK CALLE DO [id number] 11/13/2013 08:22:00 11/13/2013 23:59:59 CLS Outpatient NIKKI HART APRN [id number] 10/12/2010 10:32:00 Document Registration
[2017-12-25] MEDS ORDERED: LIDOCAINE 1% INJ 20 ML 20 ML VIAL INJ ONE (09:45)
--- NOTE | 2017-12-25 09:54 | ED Integumentary General ---
General Chief Complaint: Bite-Animal/Human/Insect Stated Complaint: DOG BITE Source: patient, other Exam Limitations: no limitations History of Present Illness Date Seen by Provider: Dec 25, 2017 Time Seen by Provider: 09:45 Initial Comments Patient presents to the ER by private conveyance with her significant other and chief complaint this morning she was walking out without shoes or socks to take the trash out and as she came around the corner a stray dog was digging in the trash turnaround her on the heel and then promptly ran away. She's never seen the dog before and does not know who belongs to. She's never had rabies vaccination before. She had a tetanus shot in August of this year. She's having minimal pain and has not taken anything for it. She has a laceration on the medial side of her right heel which she has dressed with a bandage. Allergies and Home Medications Allergies Coded Allergies: codeine (Unverified Allergy, Unknown, 08/24/15) tramadol (Unverified Allergy, Unknown, 08/24/15) sulfamethoxazole (Verified Adverse Reaction, Unknown, 10/10/16) trimethoprim (Verified Adverse Reaction, Unknown, 10/10/16) Home Medications Ondansetron 8 Mg Tab.rapdis, 8 MG PO Q6H PRN for NAUSEA/VOMITING-1ST LINE Prescribed by: DARWIN LARSON on 02/22/17 190 Patient Home Medication List Home Medication List Reviewed: Yes Review of Systems Review of Systems Constitutional: No chills, No diaphoresis EENTM: No ear discharge, No ear pain Respiratory: No cough, No short of breath Cardiovascular: No chest pain, No edema Gastrointestinal: No abdominal pain, No constipation Genitourinary: No discharge, No dysuria Past Aacpbav-Yjlisd-Myvauq Hx Patient Social History Alcohol Use: Denies Use Recreational Drug Use: No Smoking Status: Current Everyday Smoker Type Used: Cigarettes Recent Hopitalizations: No Seasonal Allergies Seasonal Allergies: No Past Medical History Surgeries: No Respiratory: No Cardiac: No Neurological: No Reproductive Disorders: No Genitourinary: No Gastrointestinal: No Musculoskeletal: No Endocrine: No (ENLARGED ADENOIDS) HEENT: No Cancer: No Psychosocial: No Integumentary: No Blood Disorders: No Family Medical History Cancer, Diabetes, Hypertension Physical Exam Vital Signs Vital Signs - First Documented 12/25/17 09:18 Temp 98.0 Pulse 100 Resp 18 B/P (MAP) 104/65 (78) Pulse Ox 99 Capillary Refill : General Appearance: WD/WN, no apparent distress HEENT: PERRL/EOMI, pharynx normal Cardiovascular: normal peripheral pulses, regular rate, rhythm Respiratory: no respiratory distress, no accessory muscle use Gastrointestinal: non tender, soft Extremities: normal range of motion, normal inspection, no pedal edema, normal capillary refill Neurologic/Psychiatric: alert, normal mood/affect, oriented x 3 Skin: other (3 cm linear laceration into the subcutaneous tissue medial right heel. No involvement of the Achilles tendon.) Procedures/Interventions Wound Location: Lower Extremities Other Wound Location Medial left ankle below the medial malleoli Wound Length (cm): 6 Wound's Depth, Shape: sub Q Wound Explored: clean Irrigated w/ Saline (ccs): 200 Betadine Prep?: Yes (chlorhexidine and sterile saline) Anesthesia: 1% Lidocaine Volume Anesthetic (ccs): 6 Wound Debrided: minimal Suture: Prolene Suture Size: 2-0 Number of Sutures: 4 Sterile Dressing Applied?: Yes Progress Patient's wound was cleaned thoroughly using chlorhexidine and sterile saline. We then infiltrated the wound edges with 6 cc of 1% lidocaine without epinephrine. When the wound was ascertained to be numb we used 2-0 Prolene to make 4 simple interrupted sutures reapproximating the wound edges. Wound was hemostatic and the patient tolerated the procedure well. Then applied a dressing after we injected 4 cc of the IgG around the wound. The remainder of the IgG was then injected into her right vastus lateralis. Progress/Results/Core Measures Results/Orders My Orders Orders - TREE SWENSON Lidocaine 1% Inj 20 Ml (Xylocaine 1% Inj (12/25/17 09:45) Rabies Vaccine Human Dipl Cell (Rabavert (12/25/17 10:00) Acetaminophen Tablet (Tylenol Tablet) (12/25/17 10:00) Acetaminophen Tablet (Tylenol Tablet) (12/25/17 09:56) Rabies Immune Globulin/Pf Inj (Hyperrab (12/25/17 10:15) Ankle, Right, 3 Views (12/25/17 10:16) Medications Given in ED Current Medications Medications Dose Ordered Sig/Chacorta Route Start Time Stop Time Status Last Admin Dose Admin Acetaminophen 1,000 mg ONCE ONCE PO 12/25/17 10:00 12/25/17 10:01 DC 12/25/17 10:01 1,000 MG Lidocaine HCl 20 ml ONCE ONCE INJ 12/25/17 09:45 12/25/17 09:50 DC 12/25/17 10:02 20 ML Rabies Immune Globulin 1,400 unit ONCE ONCE IM 12/25/17 10:15 12/25/17 10:16 DC 12/25/17 10:37 1,400 UNIT Rabies Vaccine Human Diploid Cell 1 ml ONCE ONCE IM 12/25/17 10:00 12/25/17 10:01 DC 12/25/17 10:35 1 ML Vital Signs/I&O 12/25/17 09:18 Temp 98.0 Pulse 100 Resp 18 B/P (MAP) 104/65 (78) Pulse Ox 99 Progress Progress Note : Time: 09:54 Progress Note Airport Planner's Department and notified and they will meet the patient at her house and arm. If they can recover the dog she does not need to continue the rabies vaccination but we'll going give her her IgG based on the weight-based dosing regimen today. Plan to clean the wound thoroughly irrigated and suture it. Diagnostic Imaging Diagonstic Imaging: Xray Plain Films/CT/US/NM/MRI: ankle (r) Comments NAME: KAYLAMATILDA [facility] REC#: [id number] PHYSICIAN: TREE SWENSON MD CC: ELDA HERNANDEZ DO; TREE SWENSON Page 1 of 1 RADIOLOGY REPORT VIA [facility]. [place], [place] CC: ELDA HERNANDEZ DO; TREE SWENSON Page 1 of 1 RADIOLOGY REPORT NAME: [facility] REC#: [id number] PT STATUS: REG ER : 1990 PHYSICIAN: TREE SWENSON MD ADMIT DATE: 12/25/17/ER Signed Date of Exam: 12/25/17 ANKLE, RIGHT, 3 VIEWS INDICATION: Post recent dog bite with pain and swelling TECHNIQUE: Three views of the right ankle CORRELATION STUDY: None FINDINGS: The bony alignment is anatomic. The talar dome is intact. The ankle mortise is maintained. There is no acute fracture or dislocation. Soft tissues are unremarkable. No definitive abnormal gas collection or suggestion for soft tissue foreign body. IMPRESSION: Negative for acute bony abnormality of the ankle. Dictated by: Dictated on workstation # [id number] Dict: 12/25/17 1029 Trans: 12/25/17 1030 Interpreted by: ELDA HERNANDEZ DO Electronically signed by: ELDA HERNANDEZ DO 12/25/17 1030 Reviewed: Reviewed by Me Departure Impression Primary Impression: Dog bite Qualified Codes: W54.0XXA - Bitten by dog, initial encounter Additional Impression: Encounter for prophylactic rabies immune globin Disposition: HOME, SELF-CARE Condition: Improved Departure-Patient Inst. Decision time for Depature: 11:05 Referrals: [facility] (PCP) Primary Care Physician WILBUR GOMEZ APRN (Family) Primary Care Physician Patient Instructions: Animal Bites (DC) Add. Discharge Instructions: Keep the wound clean with regular soap and water. Keep clean dry dressing on it and elevated above the level of your heart when possible. Stay off it when possible. Use Tylenol 1000 g every 8 hours in addition to ibuprofen 800 mg every 8 hours and if you have breakthrough pain which can control you may use one tablet of hydrocodone every 6 hours as needed for pain. network support administrator the Keflex and take one tablet 3 times a day for the next 5 days. If animal control can make contact with an catch the animal they can watch it for the next 10 days and you do not need to continue the rabies prophylaxis regimen unless the animal indeed has rabies. Otherwise plan to return to outpatient infusion center to receive just the vaccination in your arm on the following days: 12/28/17 01/01/18 01/08/18 All discharge instructions reviewed with patient and/or family. Voiced understanding. Scripts Hydrocodone Bit/Acetaminophen (Hydrocodone/Acetaminophen 5/325mg Tablet) 1 Tab Tab 1-2 EACH PO Q6H for PAIN-MODERATE MDD 10, #10 TAB 0 Refills Prov: TREE SWENSON 12/25/17 Cephalexin (Keflex) 500 Mg Capsule 500 MG PO TID for 5 Days, #15 CAP 0 Refills Prov: TREE SWENSON 12/25/17 Work/School Note: Work Release Form Date Seen in the Emergency Department: Dec 25, 2017 Return to Work: Dec 26, 2017 Restrictions: No Restrictions Copy Copies To 1: MARK CALLE TITUS J Dec 25, 2017 09:54
[2017-12-25] MEDS ORDERED: ACETAMINOPHEN 500 MG TAB (TYLENOL) ONE (09:56)
[2017-12-25] MEDS ORDERED: RABIES VACCINE HUMAN DIPL CELL 1 ML/2.5 UNITS SYR IM ONE (10:00)
[2017-12-25] MEDS ORDERED: RABIES IMMUNE GLOBULIN 150 UNIT/ML 10 ML (HYPERRAB) IM ONE ×2 (10:00→10:15)
[2017-12-25] MEDS ORDERED: ACETAMINOPHEN 500 MG TAB (TYLENOL) PO ONE (10:00)
--- NOTE | 2017-12-25 10:32 | Diagnostic Imaging Report ---
INDICATION: Post recent dog bite with pain and swelling TECHNIQUE: Three views of the right ankle CORRELATION STUDY: None FINDINGS: The bony alignment is anatomic. The talar dome is intact. The ankle mortise is maintained. There is no acute fracture or dislocation. Soft tissues are unremarkable. No definitive abnormal gas collection or suggestion for soft tissue foreign body. IMPRESSION: Negative for acute bony abnormality of the ankle. Dictated by: Dictated on workstation # [id number]
[2017-12-25] MEDS ORDERED: ACHD5005 PO (11:08)
[2017-12-25] MEDS ORDERED: CEPH-507 PO (11:08)
[2017-12-25 11:23] VITALS: BP 104/65
== END 2017-12-25 11:23 | disposition home or self-care (01) ==
LOC: EDUNIT# 09:06 → ER 09:07
DX: S91.351A Open bite, right foot, initial encounter (principal); F17.210 Nicotine dependence, cigarettes, uncomplicated; Z88.5 Allergy status to narcotic agent; Z88.2 Allergy status to sulfonamides; Z88.1 Allergy status to other antibiotic agents; W54.0XXA Bitten by dog, initial encounter; Z23 Encounter for immunization
CPT/HCPCS: 12002; 73610; 90376; 90471; 90675; 96372

== ENCOUNTER 2017-12-28 13:06 | Outpatient (RCR) | payer MEDICAID ==
[~2017-12-28] VITALS: Ht 165.1 cm; Wt 70.3 kg
[~2017-12-28 13:06] MED LIST changes: +ACHD5005 PO
[2017-12-28] MEDS ORDERED: RABIES VACCINE HUMAN DIPL CELL 1 ML/2.5 UNITS SYR INJ ONE (13:30)
[2017-12-28 13:55] VITALS: BP 104/61
[2018-01-01] MEDS ORDERED: RABIES VACCINE HUMAN DIPL CELL 1 ML/2.5 UNITS SYR INJ ONE (13:30)
[2018-01-08] MEDS ORDERED: RABIES VACCINE HUMAN DIPL CELL 1 ML/2.5 UNITS SYR INJ ONE (13:30)
== END 2018-03-28 | disposition home or self-care (01) ==
LOC: SDC 13:06
PROVIDERS: ATTEND Emergency Medicine
DX: Z20.3 Contact with and (suspected) exposure to rabies (principal)
CPT/HCPCS: 90675; 96372

== ENCOUNTER 2018-10-06 07:40 | Emergency (ER) | payer SELFPAY ==
[~2018-10-06] VITALS: Ht 165.1 cm; Wt 69.9 kg
--- NOTE | 2018-10-06 08:05 | ED General ---
General Chief Complaint: Skin/Wound Problems Stated Complaint: SORE ON LEFT LEG Nursing Triage Note: PT TO ED 6 W/ C/O ABSCESS TO LLE ONSET YESTERDAY, WORSE TODAY. PT REPORTS SHE THOUGHT SHE HAD AN INGROWN HAIR ET THIS AM NOTED SITE RED, SWOLLEN ET IRRITATED. DENIES INJURY AT THIS TIME. Nursing Sepsis Screen: No Definite Risk Source of Information: Patient Exam Limitations: No Limitations History of Present Illness Date Seen by Provider: Oct 06, 2018 Time Seen by Provider: 07:45 Initial Comments This 28-year-old young lady presents to the emergency room with a lesion with erythema and pain on the anterior left cardoso. She first noticed redness and irritation of last night. This morning she has developed more significant erythema, pain, and tenderness. The lesion now has an open crater about 3 mm in diameter at the center. There is moist clear drainage. She does not recall any purulent material. She does not recall any spider bites but states it is a possibility. She denies fever. She denies any inguinal lymphadenopathy or tenderness in the left groin. Allergies and Home Medications Allergies Coded Allergies: codeine (Unverified Allergy, Unknown, 08/24/15) tramadol (Unverified Allergy, Unknown, 08/24/15) sulfamethoxazole (Verified Adverse Reaction, Unknown, 10/10/16) trimethoprim (Verified Adverse Reaction, Unknown, 10/10/16) Home Medications Cephalexin 500 Mg Capsule, 500 MG PO TID Prescribed by: TREE SWENSON on 12/25/17 1108 Hydrocodone Bit/Acetaminophen 1 Tab Tab, 1-2 EACH PO Q6H Prescribed by: TREE SWENSON on 12/25/17 1108 Ondansetron 8 Mg Tab.rapdis, 8 MG PO Q6H PRN for NAUSEA/VOMITING-1ST LINE Prescribed by: DARWIN LARSON on 02/22/17 1906 Sulfamethoxazole/Trimethoprim 1 Each Tablet, 1 EACH PO BID Prescribed by: CAMMIE GREENE on 10/06/18 0808 Patient Home Medication List Home Medication List Reviewed: Yes Review of Systems Review of Systems Constitutional: no symptoms reported EENTM: no symptoms reported Respiratory: no symptoms reported Cardiovascular: no symptoms reported Gastrointestinal: no symptoms reported Genitourinary: no symptoms reported Musculoskeletal: no symptoms reported Skin: see HPI Psychiatric/Neurological: No Symptoms Reported Hematologic/Lymphatic: No Symptoms Reported Immunological/Allergic: no symptoms reported Past Jwtvmnh-Cegjot-Hsnbra Hx Past Med/Social Hx: Reviewed and Corrections made Patient Social History Alcohol Use: Occasionally Uses Recreational Drug Use: No Smoking Status: Current Everyday Smoker Type Used: Cigarettes Recent Foreign Travel: No Contact w/Someone Who Travel: No Recent Infectious Disease Expo: No Recent Hopitalizations: No Physical Abuse: No Sexual Abuse: No Mistreated: No Fear: No Seasonal Allergies Seasonal Allergies: No Past Medical History Surgeries: No Respiratory: No Cardiac: No Neurological: No : No Reproductive Disorders: No 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 0.4oz. 69.356634ly; 25.3 BMI Method:Stated General Appearance: No Apparent Distress, WD/WN HEENT: PERRL/EOMI, Normal ENT Inspection Neck: Normal Inspection Respiratory: Lungs Clear, Normal Breath Sounds, No Accessory Muscle Use Cardiovascular: Regular Rate, Rhythm, No Edema Extremity: Other (there is an area of erythema and tenderness over the left cardoso measuring about 11 cm at maximum diameter. There is a central crater about 3 mm in diameter with moist clear drainage. The area around the crater is deeper reddish and purplish in color.) Neurologic/Psychiatric: Alert, Oriented x3, No Motor/Sensory Deficits, Normal Mood/Affect, genetics teacher II-XII Norm as Tested Skin: Normal Color, Warm/Dry, Other (see extremity exam above) Procedures/Interventions Suture Size: 2-0 Progress/Results/Core Measures Suspected Sepsis Recent Fever Within 48 Hours: No Infection Criteria Present: None New/Unexplained Altered Menta: No Sepsis Screen: No Definite Risk SIRS Temperature:97.9 Pulse: 85 Respiratory Rate: 18 Blood Pressure 117 /87 Mean: 97 Results/Orders My Orders Orders - CAMMIE WALLACE MD Wound Culture (10/06/18 08:05) Vital Signs/I&O 10/06/18 07:41 Temp 97.9 Pulse 85 Resp 18 B/P (MAP) 117/87 (97) Pulse Ox 99 O2 Delivery Room Air Capillary Refill : Less Than 3 Seconds Blood Pressure Mean: 97 Progress Note : Progress Note Wound culture was obtained. Patient was started on Bactrim. Patient has a Bactrim adverse reaction of nausea. She prefers to use Bactrim over other antibiotics due to cost. She will use Zofran that she has at home to treat any associated nausea. Departure Impression Primary Impression: Cellulitis of left leg Additional Impression: Lesion of lower extremity Disposition: HOME, SELF-CARE Condition: Stable Departure-Patient Inst. Decision time for Depature: 07:58 Referrals: [facility] (PCP) Primary Care Physician WILBUR GOMEZ APRN (Family) Primary Care Physician Patient Instructions: Cellulitis (Skin Infection), Adult (DC), Spider Bites Add. Discharge Instructions: Your symptoms are likely due to spider bite versus abscess rupture with cellulitis. Complete your antibiotics as prescribed. You may take ibuprofen up to 600 mg every 6 hours and/or Tylenol (acetaminophen) up to 1000 mg every 6 hours as needed for pain. Return to care if you have significant worsening of symptoms, especially if you develop fevers over 100. Cover as long as wound is draining or moist. All discharge instructions reviewed with patient and/or family. Voiced understanding. Scripts Sulfamethoxazole/Trimethoprim (Bactrim Ds Tablet) 1 Each Tablet 1 EACH PO BID, #20 TAB Prov: CAMMIE WALLACE MD 10/06/18 CAMMIE WALLACE MD Oct 06, 2018 08:05
[2018-10-06] MEDS ORDERED: SULF1TAB35 PO (08:08)
[2018-10-06 08:12] VITALS: BP 0/0
== END 2018-10-06 08:12 | disposition home or self-care (01) ==
LOC: EDUNIT# 07:40 → ER 07:41
DX: L03.116 Cellulitis of left lower limb (principal); L98.9 Disorder of the skin and subcutaneous tissue, unspecified; F17.210 Nicotine dependence, cigarettes, uncomplicated; Z88.5 Allergy status to narcotic agent; Z88.2 Allergy status to sulfonamides; Z88.1 Allergy status to other antibiotic agents; Z82.49 Family history of ischemic heart disease and other diseases of the circulatory system
CPT/HCPCS: 87070; 87077; 87186; 87205; 99282

== ENCOUNTER 2019-12-27 18:21 | Observation (INO) | payer SELFPAY ==
[~2019-12-27] VITALS: Ht 160 cm; Wt 53.7 kg
[~2019-12-27 18:21] MED LIST changes: +SULF1TAB35 PO
--- NOTE | 2019-12-27 18:21 | NUR ---
Arrival to ED with [facility] to ED 4. Pt is sobbing and yelling with histeronics on arrival. Pt thrashing on cart with nurse attempting to do vitals. Pt's limited hx offered obtained for reason of visit. Pt is unclear of last BM, last LMP (spotting 8 days unusual for her), pt worried Mirena needs out but [facility] did not remove, and unsure of last sexual encounter as "can not remember".
--- NOTE | 2019-12-27 18:30 | NUR ---
Pt states her ex- threw away her Prozac.
--- NOTE | 2019-12-27 19:06 | ED GU-Female ---
General Chief Complaint: Abdominal/GI Problems Stated Complaint: PT IS ON DRUGS Source: patient Exam Limitations: no limitations History of Present Illness Date Seen by Provider: Dec 27, 2019 Time Seen by Provider: 18:50 Initial Comments Patient complains of abdominal pain for 2 days getting worse hurts to move hurts to cough does radiate up to the right shoulder blade when she lays down some pain with breathing she denies a fever last bowel movement was today she denies dysuria she has a Mirena and she denies a history of STDs she does have a history of tubal remotely that was treated with methotrexate she denies vaginal discharge or dysuria Timing/Duration: week, getting worse Severity/Quality: severe Location: RLQ Radiation: none Activities at Onset: none Modifying Factors: Worsens With Breathing, Worsens With Coughing, Worsens With Lying down Associated Symptoms: abdominal pain; No diaphoresis, No dysuria, No fever/chills Allergies and Home Medications Allergies Coded Allergies: codeine (Unverified Allergy, Unknown, 08/24/15) tramadol (Unverified Allergy, Unknown, 08/24/15) sulfamethoxazole (Verified Adverse Reaction, Unknown, 10/10/16) trimethoprim (Verified Adverse Reaction, Unknown, 10/10/16) Home Medications No Active Prescriptions or Reported Meds Patient Home Medication List Home Medication List Reviewed: Yes Review of Systems Review of Systems Constitutional: no symptoms reported EENTM: no symptoms reported Respiratory: no symptoms reported Cardiovascular: no symptoms reported Gastrointestinal: see HPI Genitourinary: see HPI : No Musculoskeletal: no symptoms reported Skin: no symptoms reported Past Dmyhveu-Ilqrwu-Jkeyuz Hx Past Med/Social Hx: Reviewed Nursing Past Med/Soc Hx Patient Social History Type Used: Cigarettes Recent Hopitalizations: No Seasonal Allergies Seasonal Allergies: No Past Medical History Surgeries: No Respiratory: No Cardiac: No Neurological: No Reproductive Disorders: No 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 0.4oz. [id number]; 25.3 BMI Method:Stated General Appearance: WD/WN, mild distress HEENT: PERRL/EOMI, normal ENT inspection Neck: non-tender, full range of motion Cardiovascular: normal peripheral pulses, regular rate, rhythm, no edema Respiratory: chest non-tender, lungs clear, normal breath sounds Gastrointestinal: abnormal bowel sounds, guarding, rebound, tenderness; No hernia, No mass Pelvic: No normal external exam (patient refused pelvic examination and cultures despite being explained the importance she stated she cannot tolerate it due to the pain) Back: normal inspection Extremities: normal range of motion, non-tender Neurologic/Psychiatric: role player II-XII nml as tested, no motor/sensory deficits, alert, normal mood/affect Skin: normal color, warm/dry Focused Exam Lactate Level 12/27/19 20:06: Lactic Acid Level 0.90 Lactic Acid Level Laboratory Tests Test 12/27/19 20:06 Lactic Acid Level 0.90 MMOL/L (0.50-2.00) Procedures/Interventions Suture Size: 2-0 Progress/Results/Core Measures Suspected Sepsis SIRS Temperature: Pulse: Respiratory Rate: Laboratory Tests 12/27/19 18:35: White Blood Count 25.3H Blood Pressure / Mean: 12/27/19 20:06: Lactic Acid Level 0.90 Laboratory Tests 12/27/19 18:35: Creatinine 0.69, Platelet Count 378, Total Bilirubin 0.4 Results/Orders Lab Results Laboratory Tests Test 12/27/19 18:35 12/27/19 19:19 12/27/19 20:06 Range/Units White Blood Count 25.3 H 4.3-11.0 10^3/uL Red Blood Count 4.10 L 4.35-5.85 10^6/uL Hemoglobin 12.7 11.5-16.0 G/DL Hematocrit 38 35-52 % Mean Corpuscular Volume 94 80-99 FL Mean Corpuscular Hemoglobin 31 25-34 PG Mean Corpuscular Hemoglobin Concent 33 32-36 G/DL Red Cell Distribution Width 12.5 10.0-14.5 % Platelet Count 378 130-400 10^3/uL Mean Platelet Volume 8.8 7.4-10.4 FL Immature Granulocyte % (Auto) 1 % Neutrophils (%) (Auto) 89 H 42-75 % Lymphocytes (%) (Auto) 5 L 12-44 % Monocytes (%) (Auto) 5 0-12 % Eosinophils (%) (Auto) 0 0-10 % Basophils (%) (Auto) 0 0-10 % Neutrophils # (Auto) 22.5 H 1.8-7.8 X 10^3 Lymphocytes # (Auto) 1.3 1.0-4.0 X 10^3 Monocytes # (Auto) 1.2 H 0.0-1.0 X 10^3 Eosinophils # (Auto) 0.0 0.0-0.3 10^3/uL Basophils # (Auto) 0.0 0.0-0.1 10^3/uL Immature Granulocyte # (Auto) 0.1 0.0-0.1 10^3/uL Neutrophils % (Manual) 83 % Lymphocytes % (Manual) 15 % Monocytes % (Manual) 2 % Sodium Level 137 135-145 MMOL/L Potassium Level 4.3 3.6-5.0 MMOL/L Chloride Level 101 98-107 MMOL/L Carbon Dioxide Level 25 21-32 MMOL/L Anion Gap 11 5-14 MMOL/L Blood Urea Nitrogen 13 7-18 MG/DL Creatinine 0.69 0.60-1.30 MG/DL Estimat Glomerular Filtration Rate > 60 BUN/Creatinine Ratio 19 Glucose Level 136 H 70-105 MG/DL Calcium Level 9.4 8.5-10.1 MG/DL Corrected Calcium 9.3 8.5-10.1 MG/DL Total Bilirubin 0.4 0.1-1.0 MG/DL Aspartate Amino Transf (AST/SGOT) 14 5-34 U/L Alanine Aminotransferase (ALT/SGPT) 10 0-55 U/L Alkaline Phosphatase 74 40-136 U/L Total Protein 7.6 6.4-8.2 GM/DL Albumin 4.1 3.2-4.5 GM/DL Human Chorionic Gonadotropin, Quant < 5 <5 MIU/ML Serum Alcohol < 10 <10 MG/DL Urine Color DARK YELLOW Urine Clarity CLEAR Urine pH 6.0 5-9 Urine Specific [place] >=1.030 1.016-1.022 Urine Protein NEGATIVE NEGATIVE Urine Glucose (UA) NEGATIVE NEGATIVE Urine Ketones NEGATIVE NEGATIVE Urine Nitrite NEGATIVE NEGATIVE Urine Bilirubin NEGATIVE NEGATIVE Urine Urobilinogen 0.2 < = 1.0 MG/DL Urine Leukocyte Esterase TRACE H NEGATIVE Urine RBC (Auto) TRACE-I NEGATIVE Urine RBC NONE /HPF Urine WBC 25-50 H /HPF Urine Squamous Epithelial Cells 5-10 /HPF Urine Crystals NONE /LPF Urine Bacteria FEW H /HPF Urine Casts NONE /LPF Urine Mucus LARGE H /LPF Urine Culture Indicated YES Urine Opiates Screen NEGATIVE NEGATIVE Urine Oxycodone Screen NEGATIVE NEGATIVE Urine Methadone Screen NEGATIVE NEGATIVE Urine Propoxyphene Screen NEGATIVE NEGATIVE Urine Barbiturates Screen NEGATIVE NEGATIVE Ur Tricyclic Antidepressants Screen NEGATIVE NEGATIVE Urine Phencyclidine Screen NEGATIVE NEGATIVE Urine Amphetamines Screen POSITIVE H NEGATIVE Urine Methamphetamines Screen POSITIVE H NEGATIVE Urine Benzodiazepines Screen NEGATIVE NEGATIVE Urine Cocaine Screen NEGATIVE NEGATIVE Urine Cannabinoids Screen POSITIVE H NEGATIVE Lactic Acid Level 0.90 0.50-2.00 MMOL/L My Orders Orders - SIGRID MCGILL DO Ct Abd/Pelv W (Appendicitis) (12/27/19 19:06) Cbc And Manual Diff (12/27/19 19:06) Comprehensive Metabolic Panel (12/27/19 19:06) Ua Culture If Indicated (12/27/19 19:06) Hcg,Quantitative (12/27/19 19:06) Drug Screen Stat (Urine) (12/27/19 19:06) Alcohol (12/27/19 19:06) Ed Iv/Invasive Line Start (12/27/19 19:06) Ns Iv 1000 Ml (Sodium Chloride 0.9%) (12/27/19 19:15) Fentanyl Injection (Sublimaze Injection (12/27/19 19:15) Urine Culture (12/27/19 19:19) Iohexol Injection (Omnipaque 350 Mg/Ml 1 (12/27/19 20:00) Received Contrast (Hold Metformin- Contr (12/27/19 20:00) Sodium Chloride Flush (Catheter Flush Sy (12/27/19 20:00) Ns (Ivpb) (Sodium Chloride 0.9% Ivpb Bag (12/27/19 20:00) Lactic Acid Analyzer (12/27/19 20:11) Blood Culture (12/27/19 20:11) Piperacillin Sodium/Tazobactam (Zosyn Vi (12/27/19 21:00) Medications Given in ED Current Medications Medications Dose Ordered Sig/Chacorta Route Start Time Stop Time Status Last Admin Dose Admin Fentanyl Citrate 50 mcg Q1H PRN IVP 12/27/19 19:15 12/27/19 19:17 50 MCG Iohexol 100 ml ONCE ONCE IV 12/27/19 20:00 12/27/19 20:01 DC 12/27/19 20:24 100 ML Sodium Chloride 10 ml NEEDED PRN IV 12/27/19 20:00 12/27/19 20:24 10 ML Sodium Chloride 100 ml ONCE ONCE IV 12/27/19 20:00 12/27/19 20:01 DC 12/27/19 20:24 100 ML Vital Signs/I&O 12/27/19 18:21 Temp 36.5 Pulse 125 Resp 20 B/P (MAP) 120/83 (95) Pulse Ox 100 O2 Delivery Room Air Capillary Refill : Progress Note : Progress Note This is a 29-year-old female for abdominal pain several days getting worse without fever no discharge glenn in situ. Differential includes STD appendicitis gastroenteritis and UTI the plan given her glenn will get a CT to evaluate positioning of that as well as appendicitis will try to convince the patient sheets pelvic exam with cultures check her urine and lab work IV analgesia reevaluation and disposition based on findings. Departure Communication (Admissions) Time/Spoke to Consulting Phy: 21:[address] MARCUS, general surgeon at [place] who accepted the patient in transfer requested fluids antibiotics and will see the patient at [place]. Impression Primary Impression: Acute abdominal pain Disposition: ADMITTED INPATIENT Condition: Improved Admissions Decision to Admit Reason: Admit from ER (General) Decision to Admit/Date: Dec 27, 2019 Time/Decision to Admit Time: 21:00 Transfer Transfer Reason: Exceeds level of care Time Spoke to Accepting Phy: 21:[address] MARCUS surgeon at [place] is energy consultant accepted the patient in transfer Transfer Time: 21:05 Transfer Facility: [place] Method of Transfer: EMS Departure-Patient Inst. Decision time for Depature: 21:05 Referrals: [facility] (PCP) Primary Care Physician WILBUR GOMEZ APRN (Family) Primary Care Physician Scripts No Active Prescriptions or Reported Meds SIGRID MCGILL DO Dec 27, 2019 19:06
[2019-12-27] MEDS ORDERED: NS IV 1000 ML 1,000 ML IV SCH (19:15)
[2019-12-27] MEDS ORDERED: fentaNYL INJECTION 100 MCG/2 ML AMP IVP PRN (19:15)
[2019-12-27 19:36] LABS: BACTERIA,URINE FEW /HPF; BILIRUBIN,URINE NEGATIVE (NEGATIVE); CLARITY,URINE CLEAR; COLOR,URINE DARK YELLOW; GLUCOSE, URINE (UA) NEGATIVE (NEGATIVE); KETONES,URINE NEGATIVE (NEGATIVE); LEUKOCYTE ESTERASE ,URINE TRACE (NEGATIVE); NITRITE,URINE NEGATIVE (NEGATIVE); PROTEIN,URINE NEGATIVE (NEGATIVE); WBC,URINE 25-50 /HPF
[2019-12-27 19:39] LABS: AMPHETAMINE SCREEN, URINE POSITIVE (NEGATIVE); BARBITURATE SCREEN URINE NEGATIVE (NEGATIVE); BENZODIAZEPINES SCREEN URINE NEGATIVE (NEGATIVE); CANNABINOID SCREEN, URINE POSITIVE (NEGATIVE); COCAINE SCREEN URINE NEGATIVE (NEGATIVE); METHADONE STAT NEGATIVE (NEGATIVE); METHAMPHETAMINE SCREEN URINE S POSITIVE (NEGATIVE); OPIATE SCREEN URINE NEGATIVE (NEGATIVE); OXYCODONE STAT NEGATIVE (NEGATIVE); TRICYCLIC ANTIDEPRESSANTS SCRE NEGATIVE (NEGATIVE)
[2019-12-27 19:40] LABS: PROPOXYPHENE STAT NEGATIVE (NEGATIVE)
[2019-12-27 19:40] LABS: BASOPHILS % (AUTO) 0 % (0-10); EOSINOPHILS % (AUTO) 0 % (0-10); HEMATOCRIT 38 % (35-52); HEMOGLOBIN 12.7 G/DL (11.5-16.0); LYMPHOCYTES # (AUTO) 1.3 X 10^3 (1.0-4.0); LYMPHOCYTES % (AUTO) 5 % (12-44); MEAN CORPUSCULAR HEMOGLOBIN 31 PG (25-34); MEAN CORPUSCULAR HGB CONC 33 G/DL (32-36); MEAN CORPUSCULAR VOLUME 94 FL (80-99); MEAN PLATELET VOLUME 8.8 FL (7.4-10.4); MONOCYTES # (AUTO) 1.2 X 10^3 (0.0-1.0); MONOCYTES % (AUTO) 5 % (0-12); NEUTROPHILS # (AUTO) 22.5 X 10^3 (1.8-7.8); NEUTROPHILS % (AUTO) 89 % (42-75); PLATELET COUNT 378 10^3/uL (130-400); WHITE BLOOD COUNT 25.3 10^3/uL (4.3-11.0)
[2019-12-27 19:47] LABS: ALANINE AMINOTRANSFERASE 10 U/L (0-55); ALBUMIN 4.1 GM/DL (3.2-4.5); ALKALINE PHOSPHATASE 74 U/L (40-136); BILIRUBIN,TOTAL 0.4 MG/DL (0.1-1.0); BUN/CREATININE RATIO 19; CALCIUM 9.4 MG/DL (8.5-10.1); CARBON DIOXIDE 25 MMOL/L (21-32); CHLORIDE 101 MMOL/L (98-107); CREATININE SERUM 0.69 MG/DL (0.60-1.30); GFR ESTIMATED > 60; GLUCOSE 136 MG/DL (70-105); POTASSIUM 4.3 MMOL/L (3.6-5.0); SODIUM 137 MMOL/L (135-145); TOTAL PROTEIN 7.6 GM/DL (6.4-8.2)
[2019-12-27 19:54] LABS: LYMPHOCYTES % (MANUAL) 15 %; MONOCYTES % (MANUAL) 2 %; NEUTROPHILS % (MANUAL) 83 %
[2019-12-27] MEDS ORDERED: NS 100 ML (IVPB) BAG IV ONE (20:00)
[2019-12-27] MEDS ORDERED: HOLD METFORMIN - RECEIVED CONTRAST 20 ML VIAL IV SCH (20:00)
[2019-12-27] MEDS ORDERED: CATHETER FLUSH 10 ML SYR IV PRN (20:00)
[2019-12-27] MEDS ORDERED: IOHEXOL 350 MG/ML 100 ML (OMNIPAQUE 350) VIAL IV ONE (20:00)
--- NOTE | 2019-12-27 20:48 | Diagnostic Imaging Report ---
PROCEDURE: CT abdomen and pelvis with contrast, rule out appendicitis. TECHNIQUE: Multiple contiguous axial images were obtained through the abdomen and pelvis after the administration of intravenous contrast. All CT scans use one or more of the following dose optimizing techniques: automated exposure control, MA and/or KvP adjustment based on patient size and exam type or iterative reconstruction. INDICATION: Right lower quadrant pain. FINDINGS: The liver, gallbladder and bile ducts are normal. The spleen, pancreas and adrenals are normal. Kidneys, ureters and bladder are normal. An IUD is in the uterus. No adnexal mass is seen. There are multiple air and fluid-filled loops of large and small bowel. No mucosal edema is evident. No obstruction is evident at this time and the changes are likely related to an ileus or enteritis. There is no free intraperitoneal air or fluid. There is no evidence of acute appendicitis. IMPRESSION: There are multiple fluid-filled loops of nondilated small bowel. There may be a mild ileus present. No other acute abnormality is evident. Dictated by: Dictated on workstation # [id number]
[2019-12-27] MEDS ORDERED: PIPERACILLIN SODIUM/TAZOBACTAM 4.5 GM in NS (IVPB) 100 ML IV ONE (21:00)
[2019-12-27 22:25] VITALS: BP 109/71
[2019-12-27] MEDS: NS IV 1000 ML 1,000 ML IV SCH (22:50)
[2019-12-28] VITALS: BP 122/88
[2019-12-28 03:45] VITALS: BP 142/86
[2019-12-28] MEDS: NS IV 1000 ML 1,000 ML IV SCH ×3 (05:23→18:48)
[2019-12-28] MEDS: fentaNYL INJECTION 100 MCG/2 ML AMP IVP PRN ×2 (05:23→08:33)
[2019-12-28] MEDS ORDERED: FLU QUADRIvalent (3YOA+) 60 mcg/0.5 ml 2020-21 (AFLURIA) IM ONE (07:15)
[2019-12-28 08:00] VITALS: BP 111/73
--- NOTE | 2019-12-28 10:01 | Consultation - Surgery ---
WILBUR IGLESIAS MED STUDENT 12/28/19 1001: History of Present Illness History of Present Illness Patient Consulted On(diogo/time) 12/28/19 10:01 Date Seen by Provider: Dec 28, 2019 Time Seen by Provider: 09:30 History of Present Illness 29 y/o F presents for abdominal pain. Per ED: 12/27/2019 @18:50. Patient complains of abdominal pain for 2 days getting worse hurts to move hurts to cough does radiate up to the right shoulder blade when she lays down some pain with breathing she denies a fever last bowel movement w as today she denies dysuria she has a Mirena and she denies a history of STDs she does have a history of tubal remotely that was treated with methotrexate she denies vaginal discharge or dysuria Pt states she's had abdominal pain for 2d. Pain started a wk ago and has been on and off. 2d ago, pt was found on ground at [facility] and had pain so intolerable that she was brought to ED by ambulance. Pt states she was having stabbing pain on deep inspiration and cough to her RUQ. Pain would radiate to her ovaries area, midback, and top of R shoulder. Pain was 7/10. Pt states a wk ago when she had an episode of pain, she had an uncontrolled BM and couldn't walk or move. She also had N/V. Her stool was firm at first then loose and watery. She drank fluids and ate afterwards which seemed to help. She didn't try any pain medications. Pt had associated sx of feeling lightheadedness and spotty vision, felt like fainting, N/V, and numbness in fingers in the morning that started last Sun. CT was taken at [place], which pt states she was told that she had twisted bowels. CT was taken yesterday in ED reporting fluid filled loops of small bowel w/ possible mild ileus. ED was going to preform well woman's exam but didn't have the equipment to do so. Last well woman's exam was >1yr ago. Pt's last BM was yesterday that was watery and soft and firm pellets. Today, pain is 3/10 b/c she's on pain meds. Pt reports she was straining to pee, like someone was tugging on her insides, which is new since yesterday. Pt denies pre vious occurrences. PMH: 1 vaginal delivery. tubal terminated via methotrexate Allergies and Home Medications Allergies Coded Allergies: codeine (Unverified Allergy, Unknown, 08/24/15) tramadol (Unverified Allergy, Unknown, 08/24/15) sulfamethoxazole (Verified Adverse Reaction, Unknown, 10/10/16) trimethoprim (Verified Adverse Reaction, Unknown, 10/10/16) Home Medications No Active Prescriptions or Reported Meds Past Xdtcrph-Xydeqf-Icpdyy Hx Patient Social History Alcohol Use: Denies Use Recreational Drug Use: Yes (methamphetamine last used 3d ago. pot used on ) Drug of Choice: Methamphetamines, Pot Smoking Status: Current Everyday Smoker (1/2 ppd since 25 y/o) Type Used: Cigarettes 2nd Hand Smoke Exposure: Yes Recent Foreign Travel: No Contact w/Someone Who Travel: No Recent Infectious Disease Expo: No Recent Hopitalizations: No Immunizations Up To Date Tetanus Booster (TDap): Unknown Date of Pneumonia Vaccine: Dec 26, 2010 Seasonal Allergies Seasonal Allergies: No Surgeries History of Surgeries: No Respiratory History of Respiratory Disorde: No Cardiovascular History of Cardiac Disorders: No Neurological History of Neurological Disord: No Reproductive System : No (unaware, has Mirena) Hx Reproductive Disorders: No [employer] PRO[employer] SPECIALIST History: IUD Genitourinary History of Genitourinary Disor: Yes (UTI's) Gastrointestinal History of Gastrointestinal Di: No Musculoskeletal History of Musculoskeletal Dis: Yes Musculoskeletal Disorders: Back Injury (fell during teen years and hairline fracture of lumbar support 1) Endocrine History of Endocrine Disorders: No HEENT History of HEENT Disorders: No Cancer History of Cancer: No Psychosocial History of Psychiatric Problem: Yes Behavioral Health Disorders: Bipolar (manic bipolar stage 1 (hasn't gone back since recent dx. should be taking prozac but hasn't discussed with physician)) Integumentary History of Skin or Integumenta: No Blood Transfusions History of Blood Disorders: No Family Medical History Significant Family History: Cancer (mom - breast cancer, cervical cancer. dad - lymphoma, bone cancer), CAD Over 55 Years Old, Diabetes (mom), Hypertension Review of Systems-General Constitutional: chills (feels like having chills but no F), dizziness (lightheadedness, feels like she's going to faint); No fever EENTM: blurred vision; No hearing loss, No ear pain, No eye pain Respiratory: cough Cardiovascular: No chest pain Gastrointestinal: RUQ, RLQ, LLQ, abdominal pain (RUQ, RLQ, LLQ), constipation, diarrhea, nausea, vomiting Musculoskeletal: other (shoulder pain and pelvic pain) Psychiatric/Neurological: Denies Headache; Numbness (in fingers in morning. sta rted last sun) Physical Exam-General Problems Physical Exam Vital Signs Vital Signs - First Documented 12/27/19 18:21 Temp 36.5 Pulse 125 Resp 20 B/P (MAP) 120/83 (95) Pulse Ox 100 O2 Delivery Room Air Capillary Refill : Less Than 3 Seconds General Appearance: mild distress HEENT: PERRL/EOMI Respiratory: chest non-tender, lungs clear, normal breath sounds, no respiratory distress, no accessory muscle use Cardiovascular: regular rate, rhythm, no murmur Gastrointestinal: soft, tenderness (RUQ, RLQ, LLQ, pelvic area) Extremities: no pedal edema, no calf tenderness, normal capillary refill Neurologic/Psychiatric: alert, oriented x 3 Skin: normal color, warm/dry Data Review Labs Laboratory Tests 12/27/19 18:35: White Blood Count 25.3H, Red Blood Count 4.10L, Hemoglobin 12.7, Hematocrit 38, Mean Corpuscular Volume 94, Mean Corpuscular Hemoglobin 31, Mean Corpuscular Hemoglobin Concent 33, Red Cell Distribution Width 12.5, Platelet Count 378, Mean Platelet Volume 8.8, Immature Granulocyte % (Auto) 1, Neutrophils (%) (Auto) 89H, Lymphocytes (%) (Auto) 5L, Monocytes (%) (Auto) 5, Eosinophils (%) (Auto) 0, Basophils (%) (Auto) 0, Neutrophils # (Auto) 22.5H, Lymphocytes # (Auto) 1.3, Monocytes # (Auto) 1.2H, Eosinophils # (Auto) 0.0, Basophils # (Auto) 0.0, Immature Granulocyte # (Auto) 0.1, Neutrophils % (Manual) 83, Lymphocytes % (Manual) 15, Monocytes % (Manual) 2, Sodium Level 137, Potassium Level 4.3, Chloride Level 101, Carbon Dioxide Level 25, Anion Gap 11, Blood Urea Nitrogen 13, Creatinine 0.69, Estimat Glomerular Filtration Rate > 60, BUN/Creatinine Ratio 19, Glucose Level 136H, Calcium Level 9.4, Corrected Calcium 9.3, Total Bilirubin 0.4, Aspartate Amino Transf (AST/SGOT) 14, Alanine Aminotransferase (ALT/SGPT) 10, Alkaline Phosphatase 74, Total Protein 7.6, Albumin 4.1, Human Chorionic Gonadotropin, Quant < 5, Serum Alcohol < 10 12/27/19 19:19: Urine Color DARK YELLOW, Urine Clarity CLEAR, Urine pH 6.0, Urine Specific [place] >=1.030, Urine Protein NEGATIVE, Urine Glucose (UA) NEGATIVE, Urine Ketones NEGATIVE, Urine Nitrite NEGATIVE, Urine Bilirubin NEGATIVE, Urine Urobilinogen 0.2, Urine Leukocyte Esterase TRACEH, Urine RBC (Auto) TRACE-I, Urine RBC NONE, Urine WBC 25-50H, Urine Squamous Epithelial Cells 5-10, Urine Crystals NONE, Urine Bacteria FEWH, Urine Casts NONE, Urine Mucus LARGEH, Urine Culture Indicated YES, Urine Opiates Screen NEGATIVE, Urine Oxycodone Screen NEGATIVE, Urine Methadone Screen NEGATIVE, Urine Propoxyphene Screen NEGATIVE, Urine Barbiturates Screen NEGATIVE, Ur Tricyclic Antidepressants Screen NEGATIVE, Urine Phencyclidine Screen NEGATIVE, Urine Amphetamines Screen P OSITIVEH, Urine Methamphetamines Screen POSITIVEH, Urine Benzodiazepines Screen NEGATIVE, Urine Cocaine Screen NEGATIVE, Urine Cannabinoids Screen POSITIVEH 12/27/19 20:06: Lactic Acid Level 0.[address] w/ contrast of abdomen and pelvis: 12/27/2019 There are multiple fluid-filled loops of nondilated small bowel. There may be a mild ileus present. No other acute abnormality is evident. Assessment/Plan Assessment/Plan Assessment/Plan abdominal pain - continue pain management. maintain fluid replacement and nutritional support of liquid diet. bowel rest. Clinical Quality Measures DVT/VTE Risk/Contraindication: Risk Factor Score Per Nursin RFS Level Per Nursing on Admit: 2=Moderate SUJIT FLOWER DO 12/28/19 1218: History of Present Illness History of Present Illness Time Seen by Provider: 11:48 History of Present Illness When I spoke to pt this afternoon she was sleeping in her bed, arousable but then fell back asleep. States her pain is a little better, but still there. She is hungry. Allergies and Home Medications Allergies Coded Allergies: codeine (Unverified Allergy, Unknown, 08/24/15) tramadol (Unverified Allergy, Unknown, 08/24/15) sulfamethoxazole (Verified Adverse Reaction, Unknown, 10/10/16) trimethoprim (Verified Adverse Reaction, Unknown, 10/10/16) Home Medications No Active Prescriptions or Reported Meds Patient Home Medication List Home Medication List Reviewed: Yes Past Nccvvqv-Irpfvd-Kvcdiy Hx Surgeries History of Surgeries: Yes Respiratory History of Respiratory Disorde: No Cardiovascular History of Cardiac Disorders: No Neurological History of Neurological Disord: No Reproductive System : No Endocrine History of Endocrine Disorders: No HEENT History of HEENT Disorders: No Loss of Vision: Denies Hearing Impairment: Denies Cancer History of Cancer: No Psychosocial History of Psychiatric Problem: Yes Family Medical History Significant Family History: Cancer (mom - breast cancer, cervical cancer. dad - lymphoma, bone cancer), CAD Over 55 Years Old, Diabetes (mom), Hypertension Review of Systems-General Constitutional: chills (feels like having chills but no F), dizziness (lightheadedness, feels like she's going to faint); No fever EENTM: blurred vision; No hearing loss, No ear pain, No eye pain Respiratory: cough; No hemoptysis, No short of breath Cardiovascular: No chest pain, No palpitations Gastrointestinal: abdominal pain (RUQ, RLQ, LLQ), constipation, diarrhea, nausea, vomiting Genitourinary: dysuria, frequency; No hematuria Musculoskeletal: joint pain, joint swelling, muscle stiffness, other (shoulder pain and pelvic pain) Skin: No change in color, No change in hair/nails; other (hx of MRSA on leg) Psychiatric/Neurological: Emotional Problems; Denies Headache; Numbness (in fingers in morning. started last sun) Physical Exam-General Problems Physical Exam General Appearance: WD/WN, mild distress Eyes: Bilateral Eye PERRL, Bilateral Eye EOMI HEENT: pharynx normal; No scleral icterus (R), No scleral icterus (L) Neck: non-tender, supple Respiratory: chest non-tender, lungs clear, normal breath sounds, no respirat ory distress, no accessory muscle use Cardiovascular: regular rate, rhythm Gastrointestinal: soft, no organomegaly, tenderness (RUQ, RLQ, LLQ, pelvic area) Back: no CVA tenderness, no vertebral tenderness Extremities: no pedal edema, no calf tenderness, normal capillary refill Neurologic/Psychiatric: alert, oriented x 3 Skin: normal color, warm/dry Lymphatic: no adenopathy (neck, axilla or groin) Data Review Radiology Date of Exam:12/27/19 CT ABD/PELV W (APPENDICITIS) PROCEDURE: CT abdomen and pelvis with contrast, rule out appendicitis. TECHNIQUE: Multiple contiguous axial images were obtained through the abdomen and pelvis after the administration of intravenous contrast. All CT scans use one or more of the following dose optimizing techniques: automated exposure control, MA and/or KvP adjustment based on patient size and exam type or iterative reconstruction. INDICATION: Right lower quadrant pain. FINDINGS: The liver, gallbladder and bile ducts are normal. The spleen, pancreas and adrenals are normal. Kidneys, ureters and bladder are normal. An IUD is in the uterus. No adnexal mass is seen. There are multiple air and fluid-filled loops of large and small bowel. No mucosal edema is evident. No obstruction is evident at this time and the changes are likely related to an ileus or enteritis. There is no free intraperitoneal air or fluid. There is no evidence of acute appendicitis. IMPRESSION: There are multiple fluid-filled loops of nondilated small bowel. There may be a mild ileus present. No other acute abnormality is evident. Dictated by: Dictated on workstation # [id number] Dict: 12/27/192043 Trans: 12/27/192048 [facility] [id number] Interpreted by: EITAN FUCHS MD Electronically signed by: EITAN FUCHS MD 12/27/192048 Assessment/Plan Assessment/Plan Assessment/Plan Abdominal Pain Elevated WBC Methamphetamine abuse UTI I am unsure what is causing her abdominal pain, it could be an ileus or viral gastroenteritis. Her cecum is very distended and she has lots of fluid in dilated loops of SB, I was unable to find her appendix on the CT. However, she has no free air or free fluid in abdomen. Other possibilities include PID or UTI. Will start her on clears, stop Fentanyl and change to Toradol for pain meds. Pt must ambulate and we will wait on final urine culture. In the meantime I started Zosyn, her WBC came down to 11 from 25 and we will recheck tomorrow's result. She may need a [employer] PROGRAM SPECIALIST exam to check for cervical motion tenderness and we will consider US if she worsens. Supervisory-Addendum Brief Verification & Attestation Participated in pt care: history, MDM, physical Personally performed: exam, history, MDM Care discussed with: Medical Student Procedures: n/a Verification and Attestation of Medical Student E/M Service A medical student performed and documented this service. I then reviewed and verified all information documented by the medical student and made modification s to such information, when appropriate. I personally performed a physical exam, medical decision making and then discussed any differences between the notes and made revisions as necessary to create one note. Sujit Flower , 12/28/19 , 12:28 WILBUR IGLESIAS MED STUDENT Dec 28, 2019 10:01 SUJIT FLOWER DO Dec 28, 2019 12:18
[2019-12-28 11:58] LABS: BASOPHILS % (AUTO) 0 % (0-10); EOSINOPHILS # (AUTO) 0.1 10^3/uL (0.0-0.3); EOSINOPHILS % (AUTO) 1 % (0-10); HEMATOCRIT 32 % (35-52); HEMOGLOBIN 10.1 g/dL (11.5-16.0); LYMPHOCYTES # (AUTO) 1.6 10^3/uL (1.0-4.0); LYMPHOCYTES % (AUTO) 14 % (12-44); MEAN CORPUSCULAR HEMOGLOBIN 31 pg (25-34); MEAN CORPUSCULAR HGB CONC 32 g/dL (32-36); MEAN CORPUSCULAR VOLUME 96 fL (80-99); MEAN PLATELET VOLUME 8.5 fL (9.0-12.2); MONOCYTES # (AUTO) 0.6 10^3/uL (0.0-1.0); MONOCYTES % (AUTO) 5 % (0-12); NEUTROPHILS # (AUTO) 9.2 10^3/uL (1.8-7.8); NEUTROPHILS % (AUTO) 80 % (42-75); PLATELET COUNT 245 10^3/uL (130-400); WHITE BLOOD COUNT 11.5 10^3/uL (4.3-11.0)
[2019-12-28 12:00] VITALS: BP 109/67
--- NOTE | 2019-12-28 12:00 | NUR ---
DR REEDER NOTIFIED PATIENT IS NOT ON ANTIBIOTICS. DVT ALSO ADDRESSED AT THIS TIME. VARINDER STATES IF PATIENT MOVES AROUND WILL NOT NEED MEDICATION. JOHN BRISCOE. CONT TO MONITOR. Addendum: 12/28/19 at 1906 by WOO KARIMI RN NOTIFIED OF WBC 11.3 (25.3;12/26), H/H 10.1/32(12.7/38;12/26)
[2019-12-28] MEDS ORDERED: KETOROLAC 30 MG/ML VIAL IVP PRN (12:30)
[2019-12-28] MEDS ORDERED: PIPERACILLIN/TAZOBACTAM 4.5 GM in NS (IVPB) 100 ML IV ONE (13:00)
[2019-12-28 15:59] VITALS: BP 102/63
[2019-12-28] MEDS ORDERED: PIPERACILLIN/TAZOBACTAM (BULK) 4.5 GM in NS (IVPB) 100 ML IV SCH (19:00)
[2019-12-28 20:01] VITALS: BP 104/61
--- NOTE | 2019-12-28 21:04 | NUR ---
At 1999, this patient was threatening about leaving AMA due to her not being able to have her boyfriend come visit her on this floor. I asked pt if she could call or facetime her boyfriend, but she stated she wanted to see boyfriend in person, and was upset that she could not have him visit upstairs. I had warehouse receiving supervisor come down and we both tried convincing this patient to stay, but pt willingly declared she was leaving if she couldn't see him/have him up on this floor. PT signed AMA sheet at 2034 and I read/went over it with her(pros/cons), and she signed her signature/printed name and all of her items were gathered by herself, and taken with patient. I walked pt down to ER exit as she said her bf was in the parking lot in a red chevy malibu, but bf was not there in the parking lot. PT sat in chair outside to wait for her boyfriend to arrive, as she kept saying he was coming. AMA sheet placed in chart, will discharge pt.
--- NOTE | 2019-12-28 21:16 | NUR ---
PT was left awaiting her bf in ER chair outside at 2099. ER front garage door technician and supervisor offset plate preparation were down stairs at the enterance, and said they would watch and wait until she got a ride. DR. Flower was notified of PT's discharge and AMA at 2109.
--- NOTE | 2020-01-01 15:14 | Physician Query-Final Dx ---
JESSA MONTESINOS 01/01/20 1514: Final Diagnosis Give Final Diagnosis Please give Final Diagnosis SUJIT REEDER DO 01/05/20 1426: Final Diagnosis Give Final Diagnosis Abdominal Pain Elevated WBC Methamphetamine abuse UTI JESSA MONTESINOS Jan 01, 2020 15:14 SUJIT REEDER DO Jan 05, 2020 14:26
== END 2019-12-28 21:00 | disposition left against medical advice (07) ==
LOC: EDUNIT# 18:21 → ER FS 18:22 → 4TH 22:25 → UNDOADMOB 23:30 → 4TH 23:30 → UNDODISOB 12-28 21:00
PROVIDERS: ADMIT Surgery; ATTEND Surgery
DX: R10.31 Right lower quadrant pain (principal); N39.0 Urinary tract infection, site not specified; F31.9 Bipolar disorder, unspecified; D72.829 Elevated white blood cell count, unspecified; F17.210 Nicotine dependence, cigarettes, uncomplicated; Z79.899 Other long term (current) drug therapy; Z88.5 Allergy status to narcotic agent; Z88.2 Allergy status to sulfonamides; Z88.1 Allergy status to other antibiotic agents; Z80.9 Family history of malignant neoplasm, unspecified; Z83.3 Family history of diabetes mellitus
CPT/HCPCS: 36415; 74177; 80053; 80306; 81000; 83605; 84702; 85007; 85025; 85027; 87040; 87088; 96361; 96365; 96375; 99284; G0378; G0480; 80320

== ENCOUNTER 2021-08-21 17:10 | Inpatient (IN) | payer SELFPAY ==
[~2021-08-21] VITALS: Ht 162.6 cm; Wt 68.2 kg
[~2021-08-21 17:10] MED LIST changes: -SULF1TAB35 PO; +SULF1TAB38 PO
[2021-08-21] MEDS ORDERED: NS IV 1000 ML 1,000 ML IV SCH (19:00)
[2021-08-21] MEDS ORDERED: APAP 325 MG/10.15 ML LIQ (TYLENOL) UDC PO PRN (19:00)
[2021-08-21] MEDS: PROPOFOL DRIP (ICU) 100 ML IV SCH ×3 (19:32→22:51)
[2021-08-21 19:35] VITALS: BP 125/88
--- NOTE | 2021-08-21 20:52 | Tele-ICU Consult ---
Progress Note 31 yo female admitted as a transfer from outside hospital. Per report of bedside nurse, pt was severely agitated and was heavily medicated for this. Pt was intubated for airway protection. All: codeine, sulfamethoxazole, tramadol, trimethoprim Past h/o substance abuse Other Hx and ROS not available Current meds: saline infusion, propofol, prn acetaminophen Pt is intubated, sedated Normal skin color HR 80, sat 99% sinus rhythm R 78 Good air entry b/l Abdomen soft Ext no cyanosis Problems Altered mentation h/o substance abuse Acute agitation Respiratory failure A/P Continue vent support, propofol for tonight saline hydration SCDs prophy I discussed case with bedside nurse Focused Exam Height, Weight, BMI Height: 5'5.00" Weight: 154lbs. 0.4oz. 69.373994fd; 25.79 BMI Method:Stated Respiratory: Normal Breath Sounds Cardiovascular: Regular Rate, Rhythm KHAI STEINBERG MD Aug 21, 2021 20:52
[2021-08-21 21:23] LABS: POTASSIUM 3.2 MMOL/L (3.6-5.0)
[2021-08-21 21:24] LABS: CALCIUM 7.1 MG/DL (8.5-10.1)
[2021-08-21 21:28] LABS: CREATININE SERUM 0.67 MG/DL (0.60-1.30)
[2021-08-21 21:31] LABS: MAGNESIUM 1.9 MG/DL (1.6-2.4)
[2021-08-21] MEDS: POTASSIUM CL 10MEQ/50ML IVPB 50 ML IV SCH ×2 (22:11→22:50)
[2021-08-21 22:26] VITALS: BP 105/74
[2021-08-22] MEDS ORDERED: LACTATED RINGERS 1,000 ML IV SCH (00:15)
[2021-08-22] MEDS ORDERED: LACTATED RINGERS 1,000 ML IV ONE (00:18)
[2021-08-22] MEDS: POTASSIUM CL 10MEQ/50ML IVPB 50 ML IV SCH ×4 (00:43→06:32)
[2021-08-22 02:26] VITALS: BP 113/80
[2021-08-22] MEDS: NS IV 1000 ML 1,000 ML IV SCH ×2 (02:29→11:45)
[2021-08-22 04:06] LABS: ABG BASE EXCESS -4.3 MMOL/L (-2.5-2.5); ABG OXYGEN SATURATION 100 % (94-100); ABG PCO2 30 MMHG (35-45); ABG PH 7.42 (7.37-7.43); ABG PO2 161 MMHG (79-93); ABG TCO2 20.6 MMOL/L (21.0-31.0)
[2021-08-22 04:08] LABS: ALLENS TEST POSITIVE; INSPIRED O2 30%; VENTILATOR YES
[2021-08-22 05:13] LABS: POTASSIUM 3.4 MMOL/L (3.6-5.0)
[2021-08-22 05:14] LABS: CALCIUM 7.1 MG/DL (8.5-10.1)
[2021-08-22 05:18] LABS: PHOSPHORUS 1.4 MG/DL (2.3-4.7)
[2021-08-22 05:19] LABS: CREATININE SERUM 0.53 MG/DL (0.60-1.30)
[2021-08-22 05:21] LABS: MAGNESIUM 1.7 MG/DL (1.6-2.4)
[2021-08-22] MEDS: PROPOFOL DRIP (ICU) 100 ML IV SCH ×3 (05:24→12:04)
[2021-08-22 05:42] LABS: BASOPHILS % (AUTO) 1 % (0-10); EOSINOPHILS # (AUTO) 0.3 10^3/uL (0.0-0.3); EOSINOPHILS % (AUTO) 4 % (0-10); HEMATOCRIT 33 % (35-52); HEMOGLOBIN 10.8 g/dL (11.5-16.0); LYMPHOCYTES # (AUTO) 1.7 10^3/uL (1.0-4.0); LYMPHOCYTES % (AUTO) 22 % (12-44); MEAN CORPUSCULAR HEMOGLOBIN 31 pg (25-34); MEAN CORPUSCULAR HGB CONC 33 g/dL (32-36); MEAN CORPUSCULAR VOLUME 95 fL (80-99); MEAN PLATELET VOLUME 9.4 fL (9.0-12.2); MONOCYTES # (AUTO) 0.5 10^3/uL (0.0-1.0); MONOCYTES % (AUTO) 6 % (0-12); NEUTROPHILS # (AUTO) 5.2 10^3/uL (1.8-7.8); NEUTROPHILS % (AUTO) 68 % (42-75); PLATELET COUNT 206 10^3/uL (130-400); WHITE BLOOD COUNT 7.7 10^3/uL (4.3-11.0)
[2021-08-22] MEDS ORDERED: KCL 20 MEQ TAB (K-DUR) PO SCH (06:00)
[2021-08-22] MEDS ORDERED: MAGNESIUM 1 GM/100 ML IVPB 100 ML IV SCH (06:00)
[2021-08-22] MEDS ORDERED: POTASSIUM CL 10MEQ/50ML IVPB 50 ML IV SCH (06:00)
[2021-08-22 06:23] LABS: ATYPICAL LYMPHOCYTES 1 %; BASOPHILS % (MANUAL) 1 %; EOSINOPHILS % (MANUAL) 5 %; LYMPHOCYTES % (MANUAL) 20 %; MONOCYTES % (MANUAL) 5 %; NEUTROPHILS % (MANUAL) 68 %
[2021-08-22 06:24] LABS: RBC MORPH NORMAL
[2021-08-22 07:08] VITALS: BP 107/78
[2021-08-22] MEDS: MAGNESIUM 1 GM/100 ML IVPB 100 ML IV SCH ×2 (07:53→08:46)
--- NOTE | 2021-08-22 07:57 | Diagnostic Imaging Report ---
EXAM: CHEST 1 VIEW, AP/PA ONLY INDICATION: Intubation. COMPARISON: None. FINDINGS: ETT tip at the level of the clavicles. NG tube tip and side-port in the stomach. Normal heart size and central pulmonary vascularity. No focal pulmonary opacity. No pleural effusion or pneumothorax. No acute osseous findings. IMPRESSION: 1. ETT and NGT in expected positions. 2. No acute cardiopulmonary findings. Dictated by: Dictated on workstation # [id number]
[2021-08-22] MEDS ORDERED: PANTOPRAZOLE 40 MG (PROTONIX) VIAL IV SCH (09:00)
--- NOTE | 2021-08-22 09:00 | Tele-ICU Progress Note ---
Subjective Date Seen by a Provider: Aug 22, 2021 Subjective/Events-last exam Available chart/vitals/labs/images reviewed. Video assessment done using telemetry ICU camera, rest of exam as per RN. Discussion with the RN, exam as per RN. Hospital course Patient currently intubated and put on mechanical ventilation. Reportedly she was transferred from an outside hospital because of 4 polysubstance abuse and decreased in mental status. She is intubated for airway protection currently sedated. I have ordered urine drug screen and it came positive for amphetamines, methamphetamines, benzodiazepines and cannabinoids. Outside hospital labs showed increase in CPK suggestive of rhabdomyolysis. Currently she is being hydrated with Ringer lactate. She is not ready for weaning ventilator Review of Systems ROS PER RN Sepsis Event Evaluation Height, Weight, BMI Height: 5'5.00" Weight: 154lbs. 0.4oz. 69.939235nx; 25.41 BMI Method:Stated Exam Exam Patient acknowledged, consented, and participated in this virtual visit which was conducted using real time audio/video Vital Signs Date Time Temp Pulse Resp B/P (MAP) Pulse Ox O2 Delivery O2 Flow Rate FiO2 08/22/21 08:00 81 14 113/80 100 Mechanical Ventilator 21.00 08/22/21 07:08 80 14 100 21 08/22/21 07:00 79 13 107/78 100 Mechanical Ventilator 21.00 08/22/21 07:00 79 08/22/21 06:00 70 13 101/71 100 Mechanical Ventilator 21.00 08/22/21 05:27 72 103/73 08/22/21 05:24 72 103/73 08/22/21 05:00 70 14 103/73 99 Mechanical Ventilator 21.00 08/22/21 04:50 Mechanical Ventilator 21.00 08/22/21 04:45 21 08/22/21 04:00 66 15 120/90 100 Mechanical Ventilator 30.00 08/22/21 04:00 36.0 08/22/21 04:00 100 Mechanical Ventilator 30 08/22/21 03:00 67 16 113/83 100 Mechanical Ventilator 30.00 08/22/21 02:26 68 16 100 30 08/22/21 02:00 69 15 110/81 100 Mechanical Ventilator 30.00 08/22/21 01:00 65 16 114/80 100 Mechanical Ventilator 30.00 08/22/21 00:58 67 08/22/21 00:00 70 15 110/81 100 Mechanical Ventilator 30.00 08/22/21 00:00 36.2 08/22/21 00:00 100 Mechanical Ventilator 30 08/21/21 23:00 71 16 111/81 100 Mechanical Ventilator 30.00 08/21/21 22:51 72 107/75 08/21/21 22:50 72 107/75 08/21/21 22:26 75 16 100 30 08/21/21 22:00 75 16 107/76 100 Mechanical Ventilator 30.00 08/21/21 21:36 71 111/81 08/21/21 21:00 78 16 110/78 100 Mechanical Ventilator 30.00 08/21/21 20:45 80 16 108/78 99 Mechanical Ventilator 30.00 08/21/21 20:30 77 16 108/76 99 Mechanical Ventilator 30.00 08/21/21 20:15 79 16 109/77 99 Mechanical Ventilator 30.00 08/21/21 20:00 82 16 111/78 100 Mechanical Ventilator 30.00 08/21/21 20:00 36.2 08/21/21 19:45 85 16 111/75 97 Mechanical Ventilator 30.00 08/21/21 19:35 87 16 100 30 08/21/21 19:32 87 113/52 08/21/21 19:30 87 16 113/52 100 Mechanical Ventilator 30.00 08/21/21 19:29 83 08/21/21 19:20 Mechanical Ventilator 30 I & O 08/22/21 07:00 Intake Total 1550 ml Output Total 1175 ml Balance 375 ml Height & Weight Height: 5'5.00" Weight: 154lbs. 0.4oz. 69.983490vq; 25.41 BMI Method:Stated General Appearance: Chronically ill, Moderate Distress Respiratory: Normal Breath Sounds Cardiovascular: Regular Rate, Rhythm Other comments PE PER RN Results Lab Laboratory Tests 08/21/21 20:55 08/22/21 04:57 08/22/21 05:36 Assessment/Plan Assessment/Plan 1. Polysubstance abuse with decreased mental status 2. Agitation due to both withdrawal as well as amphetamine and methamphetamine overdose 3. Rhabdomyolysis secondary to drug overdose. 4. Recommendations we will continue mechanical ventilatory support with a tidal volume of 400, FiO2 21%, respiratory rate 14 and a PEEP of 5. 2. We will sedate patient with propofol 3. Hydrate patient with Ringer lactate and monitor CK levels. 4. After completion of magnesium and potassium chloride riders we will check an EKG to see whether she has any changes. 5. DVT prophylaxis and ulcer prophylaxis will be given. 6. Video visit made and discussed with MANAGER WORK. 7. Collaboration of care with the bedside consultants and IM physicians. Critical Care: Ventilator Management Time spent with patient (mins): 35 AMANDA BAILEY MD Aug 22, 2021 09:00
[2021-08-22 09:29] LABS: AMPHETAMINE SCREEN, URINE POSITIVE (NEGATIVE); BARBITURATE SCREEN URINE NEGATIVE (NEGATIVE); BENZODIAZEPINES SCREEN URINE POSITIVE (NEGATIVE); CANNABINOID SCREEN, URINE POSITIVE (NEGATIVE); COCAINE SCREEN URINE NEGATIVE (NEGATIVE); METHADONE STAT NEGATIVE (NEGATIVE); OPIATE SCREEN URINE NEGATIVE (NEGATIVE); OXYCODONE STAT NEGATIVE (NEGATIVE); PROPOXYPHENE STAT NEGATIVE (NEGATIVE); TRICYCLIC ANTIDEPRESSANTS SCRE NEGATIVE (NEGATIVE)
[2021-08-22 11:01] VITALS: BP 101/76
[2021-08-22] MEDS ORDERED: fentaNYL DRIP PRE-MIX 250 ML IV ONE (11:43)
[2021-08-22] MEDS ORDERED: fentaNYL DRIP PRE-MIX 250 ML IV SCH ×2 (11:45)
[2021-08-22] MEDS ORDERED: POTASSIUM PHOSPHATE INJ 30 MM in NS (IVPB) 250 ML IV ONE (12:15)
[2021-08-22] MEDS ORDERED: HALOPERIDOL 5 MG/ML (HALDOL) VIAL ONE (12:35)
[2021-08-22] MEDS ORDERED: HALOPERIDOL 5 MG/ML (HALDOL) VIAL IM PRN (12:45)
[2021-08-22] MEDS ORDERED: HALOPERIDOL 5 MG/ML (HALDOL) VIAL IM ONE (12:45)
[2021-08-22 14:56] LABS: POTASSIUM 3.6 MMOL/L (3.6-5.0)
[2021-08-22 14:58] LABS: CALCIUM 7.8 MG/DL (8.5-10.1)
[2021-08-22 15:02] LABS: CREATININE SERUM 0.62 MG/DL (0.60-1.30)
[2021-08-22] MEDS ORDERED: hydrOXYzine (ATARAX) 10 MG TAB PO PRN (15:15)
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
[2021-08-22] MEDS ORDERED: polyethylene glycoL POWDER 17 GM (MIRALAX) PACK PO PRN (21:00)
[2021-08-22] MEDS ORDERED: diphenhydrAMINE 25 MG TAB (BENADRYL) PO PRN (21:00)
[2021-08-22] MEDS ORDERED: ONDANSETRON 4 MG/2 ML (SDV) Z0FRAN IV PRN (21:00)
[2021-08-22] MEDS ORDERED: ONDANSETRON 4 MG (ZOFRAN) ORAL DISSOLVE TAB PO PRN (21:00)
[2021-08-22] MEDS ORDERED: ACETAMINOPHEN 325 MG TABLET PO PRN (21:00)
[2021-08-22] MEDS ORDERED: ALPRAZolam 0.5 MG (XANAX) TAB PO PRN (21:00)
[2021-08-22] MEDS ORDERED: MELATONIN 3 MG TABLET PO PRN (21:00)
[2021-08-22] MEDS ORDERED: ANTACID SUSP 30 ML UDC (MYLANTA) PO PRN (21:00)
[2021-08-23 07:22] LABS: ALBUMIN 3.2 GM/DL (3.2-4.5); BILIRUBIN,TOTAL 0.3 MG/DL (0.1-1.0); CREATININE SERUM 0.64 MG/DL (0.60-1.30); MAGNESIUM 1.9 MG/DL (1.6-2.4); PHOSPHORUS 2.4 MG/DL (2.3-4.7); POTASSIUM 3.5 MMOL/L (3.6-5.0); TOTAL PROTEIN 5.7 GM/DL (6.4-8.2)
[2021-08-23 11:14] VITALS: BP 107/55
--- NOTE | 2021-08-23 15:43 | Discharge Summary ---
Discharge Summary Hospital Course Problems/Dx: (1) Methamphetamine intoxication Status: Acute (2) Delirium due to methamphetamine intoxication Status: Acute (3) Agitation Status: Acute (4) Endotracheally intubated Status: Acute Hospital Course Date of Admission: Aug 21, 2021 at 19:23 Admission Diagnosis : ACute methamphetamine intoxication with delirium and agitation Family Physician/Provider: Isi Mora Aprn Date of Discharge: 08/23/21 Discharge Diagnosis: Acute methamphetamine intoxication with delirium and agitation Hospital Course: Rose Fox is a 31 year old female who presented with altered mental status and was admitted with acute methamphetamine intoxication with delirium and agitation. She required endotracheal intubation. She was sedated and remained stable. When her sedation was weaned she self-extubated and became very agitated. She required antipsychotic medications and her agitation improved. She was discharged home in stable condition. She was instructed to discontinue meth amphetamine use. She will follow up at the [facility]. Labs and Pending Lab Test: Laboratory Tests 08/23/21 05:37: Sodium Level 138, Potassium Level 3.5L, Chloride Level 106, Carbon Dioxide Level 21, Anion Gap 11, Blood Urea Nitrogen 4L, Creatinine 0.64, Estimat Glomerular Filtration Rate 122, BUN/Creatinine Ratio 6, Glucose Level 84, Calcium Level 8.0L, Corrected Calcium 8.6, Phosphorus Level 2.4, Magnesium Level 1.9, Total Bilirubin 0.3, Aspartate Amino Transf (AST/SGOT) 26, Alanine Aminotransferase (ALT/SGPT) 15, Alkaline Phosphatase 59, Total Creatine Kinase 762H, Total Protein 5.7L, Albumin 3.2 Microbiology 08/21/21 MRSA Screen - Final, Complete MRSA not isolated Home Meds Active No Active Prescriptions or Reported Medications Assessment/Pt Instructions See instructions Discharge Planning: <30 minutes discharge planning Discharge Instructions Discharge Diet: No Restrictions Activity as Tolerated: Yes Consultations TeleICU Discharge Physical Examination Vital Signs Vital Signs Date Time Temp Pulse Resp B/P (MAP) Pulse Ox O2 Delivery O2 Flow Rate FiO2 08/23/21 14:57 08/23/21 11:14 37.0 84 18 95 Room Air 08/22/21 12:00 21 08/22/21 12:00 21.00 General Appearance: No Apparent Distress, WD/WN Respiratory: Lungs Clear, No Respiratory Distress Cardiovascular: Regular Rate, Rhythm, No Murmur Gastrointestinal: Normal Bowel Sounds, Soft Neurologic/Psychiatric: Alert, Depressed Affect Allergies: Coded Allergies: peanut (Verified Allergy, Severe, nonresponsive, 08/22/21) codeine (Unverified Allergy, Unknown, 08/24/15) tramadol (Unverified Allergy, Unknown, 08/24/15) sulfamethoxazole (Verified Adverse Reaction, Unknown, 10/10/16) trimethoprim (Verified Adverse Reaction, Unknown, 10/10/16) Copy Copies To 1: [facility] [place] Discharge Summary Date of Admission Aug 21, 2021 at 19:23 Date of Discharge Discharge Date: Aug 23, 2021 Discharge Time: 15:38 Admission Diagnosis Acute methamphetamine intoxication Consults/Procedures Consulations TeleICU Discharge Diagnosis Acute methamphetamine intoxication with delirium and agitation (1) Methamphetamine intoxication Status: Acute (2) Delirium due to methamphetamine intoxication Status: Acute (3) Agitation Status: Acute (4) Endotracheally intubated Status: Acute TERI MONTILLA MD Aug 23, 2021 15:42
--- NOTE | 2021-08-25 04:22 | Physician Query Clarification ---
PQ-Conflicting Diagnosis Admission/Discharge Admission Date: Aug 21, 2021 at 19:23 Discharge Date: Aug 23, 2021 at 14:57 TERI Patrick MD The medical record reflects the following clinical scenario: History/Risk Factors: [list no more than 2] Clinical Findings: [list no more than 2] Treatment: [list no more than 2] Question: Do you agree with the impression of the [diagnosis/condition] per [consulting physician]. Please document a response in Progress Note or Discharge Summary. 1. Yes 2. No 3. Other, with explanation of clinical findings 4. Clinically undetermined, no explanation for clinical findings. In responding to this query, please exercise your independent professional judgment. The purpose of this communication is to more accurately reflect the complexity of your patients condition. The fact that a question is asked does not imply that any particular answer is desired or expected. Thank you for your timely response to this clarification. Requestors name: [ ] Phone # [ ] THIS PHYSICIAN QUERY FORM IS A PERMANENT PART OF THE MEDICAL RECORD THANH PHILLIPS Aug 25, 2021 04:22
--- NOTE | 2021-08-25 04:50 | Physician Query Clarification ---
PQ-Intro New Diagnosis Admission/Discharge Admission Date: Aug 21, 2021 at 19:23 Discharge Date: Aug 23, 2021 at 14:57 TERI Patrick MD The medical record reflects the following clinical scenario: History/Risk Factors: 31 y/o female patient transferred from outside hospital due to amphetamine intoxication with delirium and agitation, amphetamine drug overdose was documented in medical record. Consultation, 08/21: Altered mentation, acute agitation, respiratory failure. Progress notes, 08/22: Agitation due to both withdrawal as well as amphetamine and methamphetamine overdose, rhabdomyalysis due to drug overdose. Discharge summary, 08/23: Acute amphetamine intoxication with delirium and agitation. Clinical Findings: Drug screen positive for amphetamine, benzo. Treatment: Endotrachially intubated, mechanical ventilation, hydration. Question: What condition best reflects the above clinical scenario? Please document a response in the Progress Noter or Discharge Summary. 1. Acute amphetamine intoxication 2. Amphetamine overdose 3. Other, with explanation of the clinical findings. 4. Clinically undetermined, no explanation for the clinical findings. PHYSICIAN RESPONSE What condition reflects above: 1 In responding to this query, please exercise your independent professional judgment. The purpose of this communication is to more accurately reflect the complexity of your patients condition. The fact that a question is asked does not imply that any particular answer is desired or expected. Thank you for your timely response to this clarification. Requestors name: [ ] Phone # [ ] THIS PHYSICIAN QUERY FORM IS A PERMANENT PART OF THE MEDICAL RECORD JACQUELINETHANH Aug 25, 2021 04:49 TERI MONTILLA MD Aug 25, 2021 12:56
== END 2021-08-23 14:57 | disposition home or self-care (01) | DRG 896 ==
LOC: ICU 19:23 → 4TH 08-22 17:00
PROVIDERS: ADMIT Family Medicine; ATTEND Internal Medicine
PROC: 5A1935Z Respiratory Ventilation, Less than 24 Consecutive Hours (ICD-10-PCS; principal; 2021-08-21)
PROC: 0BH17EZ Insertion of Endotracheal Airway into Trachea, Via Natural or Artificial Opening (ICD-10-PCS; 2021-08-21)
DX: F15.929 Other stimulant use, unspecified with intoxication, unspecified (principal); J96.90 Respiratory failure, unspecified, unspecified whether with hypoxia or hypercapnia; M62.82 Rhabdomyolysis; F31.9 Bipolar disorder, unspecified; T43.621A Poisoning by amphetamines, accidental (unintentional), initial encounter
CPT/HCPCS: 36415; 71045; 80048; 80053; 80306; 82550; 82805; 83735; 84100; 84478; 84703; 85007; 85027; 87081; 93005; 94002; 94003; 94799

== ENCOUNTER 2021-09-03 15:33 | Emergency (ER) | payer SELFPAY ==
[~2021-09-03] VITALS: Ht 165 cm; Wt 61.2 kg
[2021-09-03] MEDS ORDERED: ZIPRASIDONE 20 MG INJ (GEODON) VIAL IM ONE (15:45)
[2021-09-03] MEDS ORDERED: WATER (STERILE) FOR INJ 10 ML BTL INJ SCH (15:45)
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
[2021-09-03 15:58] LABS: BASOPHILS # (AUTO) 0.1 10^3/uL (0.0-0.1); BASOPHILS % (AUTO) 1 % (0-10); EOSINOPHILS # (AUTO) 0.1 10^3/uL (0.0-0.3); EOSINOPHILS % (AUTO) 2 % (0-10); HEMATOCRIT 38 % (35-52); HEMOGLOBIN 12.7 g/dL (11.5-16.0); LYMPHOCYTES # (AUTO) 2.4 10^3/uL (1.0-4.0); LYMPHOCYTES % (AUTO) 32 % (12-44); MEAN CORPUSCULAR HEMOGLOBIN 31 pg (25-34); MEAN CORPUSCULAR HGB CONC 33 g/dL (32-36); MEAN CORPUSCULAR VOLUME 94 fL (80-99); MEAN PLATELET VOLUME 8.7 fL (9.0-12.2); MONOCYTES # (AUTO) 0.4 10^3/uL (0.0-1.0); MONOCYTES % (AUTO) 6 % (0-12); NEUTROPHILS # (AUTO) 4.4 10^3/uL (1.8-7.8); NEUTROPHILS % (AUTO) 60 % (42-75); PLATELET COUNT 339 10^3/uL (130-400); WHITE BLOOD COUNT 7.3 10^3/uL (4.3-11.0)
[2021-09-03 16:03] LABS: CHLORIDE 104 MMOL/L (98-107); POTASSIUM 4.1 MMOL/L (3.6-5.0); SODIUM 139 MMOL/L (135-145)
[2021-09-03 16:04] LABS: ALBUMIN 4.4 GM/DL (3.2-4.5)
[2021-09-03 16:05] LABS: CALCIUM 9.6 MG/DL (8.5-10.1)
[2021-09-03 16:06] LABS: GLUCOSE 142 MG/DL (70-105)
[2021-09-03 16:07] LABS: CARBON DIOXIDE 20 MMOL/L (21-32); TOTAL PROTEIN 7.6 GM/DL (6.4-8.2)
[2021-09-03 16:08] LABS: BILIRUBIN,TOTAL 0.4 MG/DL (0.1-1.0)
[2021-09-03 16:10] LABS: AMPHETAMINE SCREEN, URINE POSITIVE (NEGATIVE); BARBITURATE SCREEN URINE NEGATIVE (NEGATIVE); BENZODIAZEPINES SCREEN URINE POSITIVE (NEGATIVE); CANNABINOID SCREEN, URINE POSITIVE (NEGATIVE); COCAINE SCREEN URINE NEGATIVE (NEGATIVE); METHADONE STAT NEGATIVE (NEGATIVE); OPIATE SCREEN URINE NEGATIVE (NEGATIVE); OXYCODONE STAT NEGATIVE (NEGATIVE); PROPOXYPHENE STAT NEGATIVE (NEGATIVE); TRICYCLIC ANTIDEPRESSANTS SCRE NEGATIVE (NEGATIVE)
[2021-09-03 16:10] LABS: ALKALINE PHOSPHATASE 53 U/L (40-136); GFR ESTIMATED 78
[2021-09-03 16:11] LABS: BUN/CREATININE RATIO 13
[2021-09-03 16:12] LABS: ACETAMINOPHEN < 10 UG/ML (10-30)
[2021-09-03 16:13] LABS: ALANINE AMINOTRANSFERASE 11 U/L (0-55); SALICYLATE < 5.0 MG/DL (5.0-20.0)
[2021-09-03 19:26] VITALS: BP 122/76
== END 2021-09-03 19:26 | disposition home or self-care (01) ==
LOC: EDUNIT# 15:33 → ER 15:34
DX: O99.342 Other mental disorders complicating pregnancy, second trimester (principal); F15.921 Other stimulant use, unspecified with intoxication delirium; Z3A.00 Weeks of gestation of pregnancy not specified; Z20.822 Contact with and (suspected) exposure to COVID-19
CPT/HCPCS: 80053; 80306; 84703; 85025; 87636; 99284; G0480 ×3; 36415; 80320; 80329